=== PATIENT | male | born 1990 | race Caucasian/White ===

== ENCOUNTER 2016-09-06 10:22 | Emergency (ER) | payer OTHER ==
[2016-09-06] MEDS ORDERED: ACETAMINOPHEN 325 MG TABLET (FP) PO ONE (10:39)
[2016-09-06] MEDS ORDERED: FAMOTIDINE 20 MG/50 ML IVPB 50 ML IVPB ONE ×3 (10:39→11:03)
[2016-09-06] MEDS ORDERED: MAG HYDROX/AL HYDROX/SIMETH 30 ML UNIT-DOSE CUP PO ONE (10:39)
[2016-09-06] MEDS ORDERED: SODIUM CHLORIDE 1,000 ML IV STA ×2 (10:39→11:52)
[2016-09-06] MEDS ORDERED: METOCLOPRAMIDE HCL INJECTION 10 MG/2 ML VIAL IVPB ONE (10:39)
[2016-09-06] MEDS ORDERED: MAG HYDROX/AL HYDROX/SIMETH 30 ML UNIT-DOSE CUP ONE (11:02)
[2016-09-06] MEDS ORDERED: ACETAMINOPHEN 325 MG TABLET (FP) ONE (11:02)
[2016-09-06 11:10] LABS: BASOPHIL 1.9 % (0-2.0); EOSINOPHIL 0.3 % (0-4.5); MCH 32.3 pg (25.7-33.7); MCHC 34.2 g/dl (32.0-35.9); MEAN CELL VOLUME 94.2 fl (80-96); MEAN PLT VOLUME 9.2 fl (7.5-11.1); NEUTROPHILS 68.5 % (42.8-82.8); PLATELET COUNT 188 K/MM3 (134-434); RDW 12.1 % (11.9-15.9); WHITE BLOOD COUNT 8.6 K/mm3 (4.0-10.8)
[2016-09-06 11:13] LABS: PH,URINE 7.5 (4.5-8); URINE APPEARANCE Clear; URINE BILIRUBIN 1+ (NEGATIVE); URINE BLOOD Negative (NEGATIVE); URINE GLUCOSE (UA) Negative (NEGATIVE); URINE KETONE 4+ (NEGATIVE); URINE LEUK ESTERASE Negative (NEGATIVE); URINE NITRITE Negative (NEGATIVE); URINE UROBILINOGEN 2.0 E.U/dl (0.2-1.0)
[2016-09-06 11:24] LABS: URINE COLOR YELLOW; URINE PROTEIN 2+ (NEGATIVE)
[2016-09-06 11:24] LABS: ALBUMIN 4.6 g/dl (3.5-5.0); ALK PHOS 61 U/L (32-92); ANION GAP 13 (8-16); BILIRUBIN,TOTAL 2.3 mg/dl (0.2-1.0); CALCIUM 9.2 mg/dl (8.4-10.2); CO2 23 mmol/L (22-28); CREATININE 1.1 mg/dl (0.6-1.3); GLUCOSE,RANDOM 92 mg/dl (74-106); SGOT/AST 20 U/L (10-42); SGPT/ALT 16 U/L (10-40); TOT PROT 7.2 g/dl (6.4-8.3)
--- NOTE | 2016-09-06 11:25 | PDOC ---
History of Present Illness - General Stated Complaint: N/V/D Time Seen by Provider: 09/06/16 10:25 History Source: Patient Exam Limitations: No Limitations - History of Present Illness Initial Comments: 09/06/16 11:46 25 year old male with history of gastritis reports several days (~6 days) of nausea, vomiting, diarrhea and left sided abd pain. Pt reports that he has decreased appetite. Persistent nausea and vomiting (several times a day). Started to notice some blood streaks in his vomitus given his persistent vomiting and wreching. Reported recently started to have diarrhea. Also with constant left sided abdominal pain. Pt was seen at [facility] where he was reportedly given gastritis medications but it was not working. Denies fevers, but reports some chills. Past History - Past Medical History Allergies/Adverse Reactions: Allergies Allergy/AdvReac Type Severity Reaction Status Date / Time No Known Allergies Allergy Verified 09/08/16 13:15 Home Medications: Ambulatory Orders Omeprazole [Prilosec] 40 mg PO DAILY #14 capsule. 11/08/15 Acetaminophen [Tylenol] 650 mg PO Q4H PRN #20 tablet 09/06/16 Famotidine [Pepcid] 20 mg PO BID PRN #20 tablet 09/06/16 Mag Hydrox/Al Hydrox/Simeth [Mylanta Suspension -] 30 ml PO Q6H PRN #1 bottle Ondansetron HCl [Zofran] 4 mg PO Q6H PRN #15 tablet 09/06/16 Anemia: No Asthma: No Cancer: No Cardiac Disorders: No CVA: No COPD: No CHF: No Dementia: No Diabetes: No GI Disorders: Yes (GASTRITIS) Disorders: No HTN: No Hypercholesterolemia: No Kidney Stones: No Liver Disease: No Suicide Attempt (Hx): No Seizures: No Thyroid Disease: No - Surgical History Abdominal Surgery: No Appendectomy: No Cardiac Surgery: No Cholecystectomy: No Lung Surgery: No Neurologic Surgery: No Orthopedic Surgery: Yes (surgery of right shoulder in 2008) - Reproductive History Testicular Surgery: No - Psycho/Social/Smoking Cessation Hx Anxiety: No Suicidal Ideation: No Smoking History: Current some day smoker Have you smoked in the past 12 months: Yes Number of Cigarettes Smoked Daily: 0 Cigars Per Day: 0 'Breaking Loose' booklet given: 06/28/12 Hx Alcohol Use: No Drug/Substance Use Hx: Yes (marijuana) Substance Use Type: Marijuana, Opiates Hx Substance Use Treatment: Yes Review of Systems - Review of Systems Able to Perform ROS?: Yes Comments:: 09/06/16 11:48 GENERAL/CONSTITUTIONAL: No fever, weakness. HEAD, EYES, EARS, NOSE AND THROAT: No change in vision. No ear pain or discharge. No sore throat. CARDIOVASCULAR: No chest pain or shortness of breath. RESPIRATORY: No cough, wheezing, or hemoptysis. GASTROINTESTINAL: + abdominal pain, nausea, vomiting, diarrhea, decreased PO intolerance. GENITOURINARY: No dysuria, frequency, or change in urination. MUSCULOSKELETAL: No joint or muscle swelling or pain. No neck or back pain. SKIN: No rash NEUROLOGIC: No headache, vertigo, loss of consciousness, or change in strength/ sensation. ENDOCRINE: No increased thirst. No abnormal weight change. HEMATOLOGIC/LYMPHATIC: No anemia, easy bleeding, or history of blood clots. ALLERGIC/IMMUNOLOGIC: No hives or skin allergy. *Physical Exam - Vital Signs Last Vital Signs Temp Pulse Resp BP Pulse Ox 140/88 09/06/16 11:05 - Physical Exam Comments: 09/06/16 11:50 GENERAL: Awake, alert, and fully oriented, in no acute distress. HEAD: No signs of trauma EYES: PERRLA, EOMI, sclera anicteric, conjunctiva clear ENT: Auricles normal inspection, hearing grossly normal, nares patent, oropharynx clear without exudates. NECK: Normal ROM, supple, no lymphadenopathy, JVD, or masses LUNGS: Breath sounds equal, clear to auscultation bilaterally. No wheezes, and no crackles HEART: Regular rate and rhythm, normal S1 and S2, no murmurs, rubs or gallops ABDOMEN: +LUQ and LLQ TTP. Soft, nontender, normoactive bowel sounds. No guarding, no rebound. No masses EXTREMITIES: Normal range of motion, no edema. No clubbing or cyanosis. No cords, erythema, or tenderness NEUROLOGICAL: Cranial nerves II through XII grossly intact. Normal speech, normal gait SKIN: Warm, Dry, normal turgor, no rashes or lesions noted. ED Treatment Course - LABORATORY CBC & Chemistry Diagram: 09/06/16 11:00 09/06/16 11:05 - ADDITIONAL ORDERS Additional order review: 09/06/16 11:00 RBC 4.64 MCV 94.2 MCHC 34.2 RDW 12.1 MPV 9.2 Neutrophils % 68.5 Lymphocytes % 22.7 Monocytes % 6.6 Eosinophils % 0.3 Basophils % 1.9 - RADIOLOGY Radiology Studies Ordered: Category Date Time Status ABDOMEN & PELVIS CT WITH CONTR [CT] Stat CT Scan 09/06/16 10:39 Ordered - Medications Given in the ED: ED Medications Discontinued Medications Generic Name Dose Route Start Last Admin Trade Name Mayuri PRN Reason Stop Dose Admin Acetaminophen 650 mg 09/06/16 10:39 09/06/16 11:07 Tylenol - PO 09/06/16 10:40 650 mg ONCE ONE Administration Al Hydroxide/Mg Hydroxide 30 ml 09/06/16 10:39 09/06/16 11:08 Mylanta Oral Suspension - PO 09/06/16 10:40 30 ml ONCE ONE Administration Famotidine/Sodium Chloride 50 mls @ 100 mls/hr 09/06/16 10:39 09/06/16 11:16 Pepcid 20 Mg Premixed Ivpb - IVPB 09/06/16 11:08 100 mls/hr ONCE ONE Administration Metoclopramide HCl 10 mg 09/06/16 10:39 09/06/16 11:09 Reglan Injection - IVPB 09/06/16 10:40 10 mg ONCE ONE Administration Medical Decision Making - Medical Decision Making 09/06/16 11:51 Vital Signs Temp Pulse Resp BP Pulse Ox 99.3 F 100 H 16 140/88 09/06/16 10:24 09/06/16 10:24 09/06/16 10:24 09/06/16 11:05 Patient appears dehydrated and with n/v/d and likely now with clary reza tear , pt will need labs, and IVF and symptom control. However, with left sided abd pain and diarrhea, will need CT abd/pelvis to r/o colitis or other acute abdominal pathology. Differential also includes gastroenteritis. Reassess CT reviewed. Pt given information regarding diverticulosis. Pt to avoid foods like small seeds. Pt symptoms improved. Will follow up with GI. Return precautions given. *DC/Admit/Observation/Transfer Diagnosis at time of Disposition: Nausea and vomiting - Discharge Dispostion Disposition: HOME Condition at time of disposition: Improved Admit: No - Prescriptions Prescriptions: Mag Hydrox/Al Hydrox/Simeth [Mylanta Suspension -] 30 ml PO Q6H PRN #1 bottle PRN Reason: Abdominal Pain Famotidine [Pepcid] 20 mg PO BID PRN #20 tablet PRN Reason: Abdominal Pain Acetaminophen [Tylenol] 650 mg PO Q4H PRN #20 tablet PRN Reason: Pain Ondansetron HCl [Zofran] 4 mg PO Q6H PRN #15 tablet PRN Reason: Nausea - Referrals Referrals: Marin Rader MD [Staff Physician] - Radha Story MD [Staff Physician] - Marvin Saunders MD [Staff Physician] - Denis Navarro MD [Staff Physician] - - Patient Instructions Printed Discharge Instructions: Nausea and Vomiting-Adult, Diarrhea, DI for Diverticulosis Additional Instructions: Please take the medications as prescribed. Your blood work and CT scan showed no acute findings. There was an incidental finding of diverticulosis. Please avoid foods with small seeds as the seeds can create an inflammation of the diverticulosis. Drink plenty of fluids and rest. Follow up with a GI physician. Call to schedule an appointment. - Post Discharge Activity Work/School Note: Back to Work
[2016-09-06 11:27] LABS: URINE RBC 0-2 /hpf (0-3)
[2016-09-06 11:28] LABS: URINE SPERM FEW
[2016-09-06 11:36] VITALS: TEMP 99.3; BMI 21.2
[2016-09-06] MEDS ORDERED: ONDANSETRON 4 MG/2 ML VIAL IVPB ONE (13:51)
[2016-09-06] MEDS ORDERED: ONDANSETRON 4 MG/2 ML VIAL ONE (14:28)
[2016-09-06 16:39] VITALS: BP 132/89; PULSE 64
== END 2016-09-06 16:39 | disposition home or self-care (01) ==
LOC: FER 10:22
PROC: 3E033GC Introduction of Other Therapeutic Substance into Peripheral Vein, Percutaneous Approach (ICD-10-PCS; principal; 2016-09-06)
PROC: 3E0337Z Introduction of Electrolytic and Water Balance Substance into Peripheral Vein, Percutaneous Approach (ICD-10-PCS; 2016-09-06)
DX: R11.2 Nausea with vomiting, unspecified (principal)
CPT/HCPCS: 36415; 74177-TC; 80053; 81003; 81015; 83690; 83735; 85025; 96361; 96365; 96375; 99282-25

== ENCOUNTER 2016-09-08 13:10 | Emergency (ER) | payer OTHER ==
[2016-09-08] MEDS ORDERED: SODIUM CHLORIDE 1,000 ML IV STA ×2 (13:20→14:59)
[2016-09-08] MEDS ORDERED: FAMOTIDINE 20 MG/50 ML IVPB 50 ML IVPB ONE ×2 (13:20→13:22)
[2016-09-08] MEDS ORDERED: ONDANSETRON 4 MG/2 ML VIAL IVPUSH ONE (13:20)
[2016-09-08 13:21] VITALS: BMI 23.1
[2016-09-08] MEDS ORDERED: ONDANSETRON 4 MG/2 ML VIAL ONE (13:22)
--- NOTE | 2016-09-08 13:24 | PDOC ---
History of Present Illness - General Chief Complaint: Nausea/Vomiting Stated Complaint: NAUSEA, VOMITING, ABD PAIN Time Seen by Provider: 09/08/16 13:16 History Source: Patient Exam Limitations: No Limitations - History of Present Illness Travel History: No Initial Comments: 09/08/16 13:22 25 y/o male seen 2 days ago in ER for abdominal pain presents to ER today with increase N/V and abdominal pain. Denies back pain, dysuria, fever or chills. No SOB or chest pain. Patient has hx of gastritis, denies blood in stool or vomit. Has not followed up with [employer]ing [employer]. Timing/Duration: reports: constant, getting worse Quality: reports: moderate Abdominal Pain Onset Location: reports: epigastric Pain Radiation: reports: no radiation Activities at Onset: reports: none Past History - Past Medical History Allergies/Adverse Reactions: Allergies Allergy/AdvReac Type Severity Reaction Status Date / Time No Known Allergies Allergy Verified 09/08/16 13:15 Home Medications: Ambulatory Orders Omeprazole [Prilosec] 40 mg PO DAILY #14 capsule. 11/08/15 Acetaminophen [Tylenol] 650 mg PO Q4H PRN #20 tablet 09/06/16 Famotidine [Pepcid] 20 mg PO BID PRN #20 tablet 09/06/16 Mag Hydrox/Al Hydrox/Simeth [Mylanta Suspension -] 30 ml PO Q6H PRN #1 bottle Ondansetron HCl [Zofran] 4 mg PO Q6H PRN #15 tablet 09/06/16 Anemia: No Asthma: No Cancer: No Cardiac Disorders: No CVA: No COPD: No CHF: No Dementia: No Diabetes: No GI Disorders: Yes (GASTRITIS) Disorders: No HTN: No Hypercholesterolemia: No Kidney Stones: No Liver Disease: No Suicide Attempt (Hx): No Seizures: No Thyroid Disease: No - Surgical History Abdominal Surgery: No Appendectomy: No Cardiac Surgery: No Cholecystectomy: No Lung Surgery: No Neurologic Surgery: No Orthopedic Surgery: Yes (surgery of right shoulder in 2008) - Reproductive History Testicular Surgery: No - Psycho/Social/Smoking Cessation Hx Anxiety: No Suicidal Ideation: No Smoking History: Current some day smoker Have you smoked in the past 12 months: Yes Number of Cigarettes Smoked Daily: 0 If you are a former smoker, when did you quit?: pt smokes marijuana not tobacco Cigars Per Day: 0 'Breaking Loose' booklet given: 06/28/12 Hx Alcohol Use: No Drug/Substance Use Hx: Yes (marijuana) Substance Use Type: Marijuana, Opiates Hx Substance Use Treatment: Yes Abd/GI Specific PMHX - Complaint Specific PMHX Hepatitis: No Pancreatitis: No Review of Systems - Review of Systems Able to Perform ROS?: Yes Is the patient limited [place]ian proficient: No Constitutional: No: Chills, Fever HEENTM: No: Throat Pain Respiratory: No: Cough, Shortness of Breath Cardiac (ROS): No: Chest Pain, Irregular Heart Rate ABD/GI: Yes: Nausea, Vomiting. No: Diarrhea : No: Burning, Dysuria Musculoskeletal: No: Back Pain All Other Systems: Reviewed and Negative *Physical Exam - Physical Exam General Appearance: Yes: Nourished, Mild Distress HEENT: positive: EOMI, MARTY, Normal ENT Inspection Neck: positive: Trachea midline, Normal Thyroid, Supple. negative: Tender, Rigid Respiratory/Chest: positive: Lungs Clear, Normal Breath Sounds. negative: Chest Tender Cardiovascular: positive: Regular Rhythm, Regular Rate, S1, S2 Gastrointestinal/Abdominal: positive: Normal Bowel Sounds, Tender (diffuse tenderness, however worse mid epigatric), Flat, Soft. negative: Organomegaly, Pulsatile Mass Lymphatic: negative: Adenopathy, Tenderness, Other Musculoskeletal: positive: Normal Inspection. negative: CVA Tenderness Extremity: positive: Normal Capillary Refill, Normal Inspection Integumentary: positive: Normal Color, Dry, Warm Neurologic: positive: manager of financial II-XII NML intact, Fully Oriented, Alert, Normal Mood/ Affect, Normal Response, Motor Strength / ED Treatment Course - LABORATORY CBC & Chemistry Diagram: 09/08/16 13:30 09/08/16 13:30 - ADDITIONAL ORDERS Additional order review: 09/08/16 16:13 CT abd/pelvis no acute process seen Progress Note - Progress Note Progress Note: Pt with worsening abdominal pain with N/V Will repeat CT abdomen/pelvis Labs, fluids, and Pepcid and Zofran Pt is doing better, will need to follow up with GI If worsen return to ER *DC/Admit/Observation/Transfer Diagnosis at time of Disposition: Peptic ulcer disease - Discharge Dispostion Disposition: HOME Condition at time of disposition: Stable Admit: No - Patient Instructions Printed Discharge Instructions: DI for Peptic Ulcer Additional Instructions: Fluids, rest, Tylenol Follow up with GI If worsen return to ER
[2016-09-08 13:43] LABS: PH,URINE >= 9.0 (4.5-8); URINE APPEARANCE Clear; URINE BILIRUBIN Negative (NEGATIVE); URINE BLOOD Negative (NEGATIVE); URINE GLUCOSE (UA) Negative (NEGATIVE); URINE KETONE Negative (NEGATIVE); URINE LEUK ESTERASE Negative (NEGATIVE); URINE NITRITE Negative (NEGATIVE); URINE UROBILINOGEN 0.2 E.U/dl (0.2-1.0)
[2016-09-08 13:50] LABS: BASOPHIL 0.8 % (0-2.0); EOSINOPHIL 0.5 % (0-4.5); MCH 32.5 pg (25.7-33.7); MCHC 33.8 g/dl (32.0-35.9); MEAN CELL VOLUME 96.1 fl (80-96); MEAN PLT VOLUME 9.1 fl (7.5-11.1); PLATELET COUNT 228 K/MM3 (134-434); RDW 12.6 % (11.9-15.9); WHITE BLOOD COUNT 10.4 K/mm3 (4.0-10.8)
[2016-09-08 14:01] LABS: URINE COLOR YELLOW; URINE PROTEIN 1+ (NEGATIVE)
[2016-09-08 14:11] LABS: ALBUMIN 5.2 g/dl (3.5-5.0); ALK PHOS 66 U/L (32-92); ANION GAP 12 (8-16); BILIRUBIN,TOTAL 1.5 mg/dl (0.2-1.0); CALCIUM 9.8 mg/dl (8.4-10.2); CO2 25 mmol/L (22-28); CREATININE 0.9 mg/dl (0.6-1.3); GLUCOSE,RANDOM 97 mg/dl (74-106); SGOT/AST 18 U/L (10-42); SGPT/ALT 17 U/L (10-40); TOT PROT 8.2 g/dl (6.4-8.3)
[2016-09-08 16:41] VITALS: BP 139/94; PULSE 64; TEMP 99.7
[2016-09-08 20:45] LABS: URINE RBC 0-2 /hpf (0-3); URINE WBC 0-1 (3-5)
== END 2016-09-08 16:44 | disposition home or self-care (01) ==
LOC: FER 13:10
PROC: 3E033GC Introduction of Other Therapeutic Substance into Peripheral Vein, Percutaneous Approach (ICD-10-PCS; principal; 2016-09-08)
PROC: 3E0337Z Introduction of Electrolytic and Water Balance Substance into Peripheral Vein, Percutaneous Approach (ICD-10-PCS; 2016-09-08)
DX: K27.9 Peptic ulcer, site unspecified, unspecified as acute or chronic, without hemorrhage or perforation (principal); F17.210 Nicotine dependence, cigarettes, uncomplicated
CPT/HCPCS: 36415; 74177-TC; 80053; 81003; 81015; 83690; 85025; 99283-25

== ENCOUNTER 2017-01-03 20:27 | Emergency (ER) | payer OTHER ==
[2017-01-03 20:34] VITALS: BP 134/86; PULSE 72; TEMP 98.9; BMI 24.3
[2017-01-03] MEDS: SODIUM CHLORIDE 1,000 ML IV STA ×2 (21:00→21:05)
[2017-01-03] MEDS ORDERED: ONDANSETRON 4 MG/2 ML VIAL IVPUSH ONE (21:05)
--- NOTE | 2017-01-03 21:05 | PDOC ---
History of Present Illness - General Chief Complaint: Vomiting/Diarrhea Stated Complaint: VOMITING Time Seen by Provider: 01/03/17 21:00 History Source: Patient Exam Limitations: No Limitations - History of Present Illness Travel History: No Initial Comments: 01/03/17 21:37 26-year-old male with no medical history presents to the emergency department requesting for a work note. Patient states he had one episode of nausea/ vomiting at approximately 1300 hrs. this afternoon/nonbilious, nonbloody but states felt fine after he fell asleep. Patient went to work this afternoon and was told he needs a doctor's note to return back to work. Patient denies any n/v /f/c, transfer note headache, dizziness, lightheadedness, neck pain, back pain, chest pain, shortness of breath, abdominal pains, urinary symptoms. Patient states he is asymptomatic and he feels "great". Timing/Duration: reports: gone now Past History - Past Medical History Allergies/Adverse Reactions: Allergies Allergy/AdvReac Type Severity Reaction Status Date / Time No Known Allergies Allergy Verified 09/08/16 13:15 Home Medications: Ambulatory Orders Omeprazole [Prilosec] 40 mg PO DAILY #14 capsule. 11/08/15 Acetaminophen [Tylenol] 650 mg PO Q4H PRN #20 tablet 09/06/16 Famotidine [Pepcid] 20 mg PO BID PRN #20 tablet 09/06/16 Mag Hydrox/Al Hydrox/Simeth [Mylanta Suspension -] 30 ml PO Q6H PRN #1 bottle Ondansetron HCl [Zofran] 4 mg PO Q6H PRN #15 tablet 09/06/16 Anemia: No Asthma: No Cancer: No Cardiac Disorders: No CVA: No COPD: No CHF: No Dementia: No Diabetes: No GI Disorders: Yes (GASTRITIS) Disorders: No HTN: No Hypercholesterolemia: No Kidney Stones: No Liver Disease: No Seizures: No Thyroid Disease: No - Surgical History Abdominal Surgery: No Appendectomy: No Cardiac Surgery: No Cholecystectomy: No Lung Surgery: No Neurologic Surgery: No Orthopedic Surgery: Yes (surgery of right shoulder in 2008) - Reproductive History Testicular Surgery: No - Suicide/Smoking/Psychosocial Hx Smoking History: Never smoked Have you smoked in the past 12 months: Yes Number of Cigarettes Smoked Daily: 0 If you are a former smoker, when did you quit?: pt smokes marijuana not tobacco Cigars Per Day: 0 Information on smoking cessation initiated: No 'Breaking Loose' booklet given: 06/28/12 Hx Alcohol Use: No Drug/Substance Use Hx: No Substance Use Type: Marijuana, Opiates Hx Substance Use Treatment: Yes Abd/GI Specific PMHX - Complaint Specific PMHX Hepatitis: No Pancreatitis: No Review of Systems - Review of Systems Able to Perform ROS?: Yes Comments:: 01/03/17 21:40 CONSTITUTIONAL: Absent: fever, chills, diaphoresis, generalized weakness, malaise, loss of appetite HEENT: Absent: rhinorrhea, nasal congestion, throat pain, throat swelling, difficulty swallowing, mouth swelling, ear pain, eye pain, visual Changes CARDIOVASCULAR: Absent: chest pain, loss of consciousness, palpitations, irregular heart rate, peripheral edema RESPIRATORY: Absent: cough, shortness of breath, dyspnea with exertion, orthopnea, wheezing, stridor, hemoptysis GASTROINTESTINAL: Absent: abdominal pain, abdominal distension, nausea, vomiting, diarrhea, constipation, melena, hematochezia GENITOURINARY: Absent: dysuria, frequency, urgency, hesitancy, hematuria, flank pain, genital pain MUSCULOSKELETAL: Absent: myalgia, arthralgia, joint swelling SKIN: Absent: rash, itching, pallor Is the patient limited Upper Sorbian proficient: No *Physical Exam - Vital Signs Last Vital Signs Temp Pulse Resp BP Pulse Ox 98.9 F 72 18 134/86 99 01/03/17 20:29 01/03/17 20:29 01/03/17 20:29 01/03/17 20:29 01/03/17 20:29 - Physical Exam Comments: 01/03/17 21:40 GENERAL: Well developed, well nourished. Awake and alert. No acute distress. HEENT: Normocephalic, atraumatic. PERRLA, EOMI. No conjunctival pallor. Sclera are non- icteric. Moist mucous membranes. Oropharynx is clear. NECK: Supple. Full ROM. No JVD. Carotid pulses 2+ and symmetric, without bruits. No thyromegaly. No lymphadenopathy. CARDIOVASCULAR: Regular rate and rhythm. No murmurs, rubs, or gallops. Distal pulses are 2+ and symmetric. PULMONARY: No evidence of respiratory distress. Lungs clear to auscultation bilaterally. No wheezing, rales or rhonchi. ABDOMINAL: Soft. Non-tender. Non-distended. No rebound or guarding. No organomegaly. Normoactive bowel sounds. *DC/Admit/Observation/Transfer Diagnosis at time of Disposition: Nausea and vomiting - Discharge Dispostion Disposition: HOME Condition at time of disposition: Stable Admit: No - Referrals Referrals: Heena Berger MD [Staff Physician] - - Patient Instructions Additional Instructions: Return back to the emergency department for any medical complaints. - Post Discharge Activity Forms/Work/School Notes: Back to Work
== END 2017-01-03 22:09 | disposition home or self-care (01) ==
LOC: JER 20:27
DX: R11.2 Nausea with vomiting, unspecified (principal)
CPT/HCPCS: 99281-25

== ENCOUNTER 2018-06-21 14:41 | Emergency (ER) | payer OTHER ==
--- NOTE | 2018-06-21 14:43 | PDOC ---
History of Present Illness - General History Source: Patient Exam Limitations: No Limitations - History of Present Illness Initial Comments: 06/21/18 15:32 The patient is a 27 year old male, with a significant past medical history of opioid abuse, who presents to the emergency department with a few days of nausea , vomiting, diarrhea, intermittent chills and sweats, intermittent abdominal cramping, excessive yawning, and feeling anxious. He states he takes about 5-6 10mg percocets a day. He states he took a half of his friend's suboxone which made him feel better on Monday, however, continued to have symptoms since Monday. He states he would be interested in formal detox, but is concerned about missing work because he has been out of work all week. The patient denies chest pain, shortness of breath, headache and dizziness. The patient denies fever, diarrhea and constipation, or hematochezia. He denies hematemesis. The patient denies dysuria, frequency, urgency and hematuria. Allergies: NKDA Social history: opioid abuse <Kailee Blankenship - Last Filed: 06/21/18 15:40> <Billy Gould - Last Filed: 06/21/18 15:58> - General Chief Complaint: Nausea/Vomiting Stated Complaint: N/V/ABD PAIN Past History <Kailee Blankenship - Last Filed: 06/21/18 15:40> - Past Medical History Anemia: No Asthma: No Cancer: No Cardiac Disorders: No CVA: No COPD: No CHF: No DVT: No Dementia: No Diabetes: No GI Disorders: Yes (GASTRITIS) Disorders: No HTN: No Hypercholesterolemia: No Kidney Stones: No Liver Disease: No Seizures: No Thyroid Disease: No - Surgical History Abdominal Surgery: No Appendectomy: No Cardiac Surgery: No Cholecystectomy: No Lung Surgery: No Neurologic Surgery: No Orthopedic Surgery: Yes (surgery of right shoulder in 2008) - Reproductive History Testicular Surgery: No - Suicide/Smoking/Psychosocial Hx Smoking History: Never smoked Have you smoked in the past 12 months: Yes Number of Cigarettes Smoked Daily: 0 If you are a former smoker, when did you quit?: pt smokes marijuana not tobacco Cigars Per Day: 0 'Breaking Loose' booklet given: 06/28/12 Hx Alcohol Use: No Drug/Substance Use Hx: No Substance Use Type: Marijuana, Opiates Hx Substance Use Treatment: Yes <Billy Gould - Last Filed: 06/21/18 15:58> - Past Medical History Allergies/Adverse Reactions: Allergies Allergy/AdvReac Type Severity Reaction Status Date / Time No Known Allergies Allergy Verified 06/21/18 14:42 Home Medications: Ambulatory Orders Ondansetron [Zofran Odt -] 4 mg SL TID #21 od.tablet 06/21/18 Review of Systems - Review of Systems Able to Perform ROS?: Yes Comments:: 06/21/18 15:35 ROS: A complete review of 10 out of 10 review of systems is taken and is negative apart from what is previously mentioned below and in the HPI. Constitutional: (+) fever, chills, anxious, yawning excessively ENT: No sore throat Cardiovascular: No palpitations; no chest pain Pulmonary: No cough; no trouble breathing Gastrointestinal:(+) nausea, vomiting, abdominal cramping, diarrhea Genitourinary: No urinary problems; no hematuria Skin: No rash Lymph system: No swollen glands Musculoskeletal: (+) diffuse body aches. No joint swelling Neurological: No weakness; oo numbness; No Headache; no vertigo; no lightheadedness Psychiatric: no depression <Kailee Blankenship - Last Filed: 06/21/18 15:40> *Physical Exam - Vital Signs Last Vital Signs Temp Pulse Resp BP Pulse Ox 99.6 F 60 16 126/83 99 06/21/18 14:42 06/21/18 14:42 06/21/18 14:42 06/21/18 14:42 06/21/18 14:42 - Physical Exam Comments: 06/21/18 15:38 Vitals: Triage vital signs reviewed General Appearance: No acute distress, well nourished, well developed Head: Atraumatic Eyes: Pupils equal reactive round, extraocular movement intact Throat: Posterior oropharynx without erythema, mucous membranes moist Neck: Supple; No nuchal rigidity Chest Wall: Nontender Cardiac: Regular rate and rhythm, no murmurs, no rubs, no gallops Lungs: Clear to auscultation bilateral, good air movement bilaterally Abdomen: Soft, nondistended, normal bowel sounds, nontender to palpation Extremities: Full range of motion to all extremities, no cyanosis, clubbing, or edema Skin: Warm and dry, no rashes or lesions, no rash, no petechiae Neuro: AOX3; Cranial Nerves 2-12 grossly intact, Strength intact to all extremities, Sensation intact to all extremities, gait normal. non-tremulous. Psych: Normal mood, normal affect <Kailee Blankenship - Last Filed: 06/21/18 15:40> ED Treatment Course - LABORATORY CBC & Chemistry Diagram: 06/21/18 14:49 06/21/18 14:49 - ADDITIONAL ORDERS Additional order review: Laboratory Results 06/21/18 14:49 Sodium 137 Potassium 4.0 Chloride 102 Carbon Dioxide 27 Anion Gap 8 BUN 11 Creatinine 0.8 Creat Clearance w eGFR 115.11 Random Glucose 101 Calcium 9.8 Total Bilirubin 1.1 H AST 21 ALT 21 Alkaline Phosphatase 70 Total Protein 7.4 Albumin 4.6 06/21/18 14:49 RBC 4.58 MCV 96.6 H MCHC 34.0 RDW 12.4 MPV 9.4 Neutrophils % 77.6 Lymphocytes % 17.4 Monocytes % 4.3 Eosinophils % 0.2 Basophils % 0.5 - Medications Given in the ED: ED Medications Discontinued Medications Generic Name Dose Route Start Last Admin Trade Name Freq PRN Reason Stop Dose Admin Famotidine/Sodium Chloride 20 mg in 50 mls @ 100 mls/hr 06/21/18 14:44 14:56 Pepcid 20 Mg Premixed Ivpb - IVPB 06/21/18 15:13 100 mls/hr ONCE ONE Administration Ondansetron HCl 4 mg 06/21/18 14:44 06/21/18 14:56 Zofran Injection IVPUSH 06/21/18 14:45 4 mg ONCE ONE Administration Sodium Chloride 1,000 ml 06/21/18 14:44 06/21/18 14:55 Normal Saline - IV 06/21/18 14:45 1,000 ml ONCE ONE Administration <Kailee Blankenship - Last Filed: 06/21/18 15:40> - LABORATORY CBC & Chemistry Diagram: 06/21/18 14:49 06/21/18 14:49 <Billy Gould - Last Filed: 06/21/18 15:58> Medical Decision Making - Medical Decision Making 06/21/18 15:40 COWS ~14 <Kailee Blankenship - Last Filed: 06/21/18 15:40> - Medical Decision Making 19 years old past medical history significant for opiate abuse has been using up until this past Monday when he stops since then has been experiencing opiate withdrawal symptoms including nausea vomiting diarrhea flushing sweating anxiety restlessness COWs score 14 No inpatient beds at to [facility] however were able to arrange outpatient follow -up for 11 AM tomorrow In conjunction with team at [facility] we'll treat here in the emergency department with 4 mg Suboxone patient will follow up tomorrow morning at 11 AM We'll treat with Zofran when necessary overnight to help with nausea Findings, need for follow-up and strict return instructions discussed with patient. <Billy Gould - Last Filed: 06/21/18 15:58> *DC/Admit/Observation/Transfer - Attestations Scribe Attestion: 06/21/18 15:38 Documentation prepared by Kailee Blankenship, acting as hospital medical biller for Billy Gould MD <Kailee Blankenship - Last Filed: 06/21/18 15:40> - Discharge Dispostion Decision to Admit order: No <Billy Gould - Last Filed: 06/21/18 15:58> Diagnosis at time of Disposition: Opioid withdrawal - Discharge Dispostion Disposition: HOME Condition at time of disposition: Stable - Referrals Referrals: [facility] [place] [Provider Group] - Patient Instructions Printed Discharge Instructions: DI for Vomiting -- Adult Additional Instructions: Take Zofran as prescribed. Drink plenty of fluids. Return to ED for any severe worsening symptoms or for any concerns. Tomorrow morning at 11 AM follow-up at [address] [place] [address]. [facility]. At [facility] tell them you have an appointment at [facility] at 11am. Arrive 15min early - Post Discharge Activity Forms/Work/School Notes: Back to Work
[2018-06-21 14:44] VITALS: BMI 23.7
[2018-06-21] MEDS ORDERED: ONDANSETRON 4 MG/2 ML VIAL IVPUSH ONE (14:44)
[2018-06-21] MEDS ORDERED: SODIUM CHLORIDE 0.9% 1000 ML INFUS.BAG IV ONE (14:44)
[2018-06-21] MEDS ORDERED: FAMOTIDINE 20 MG/50 ML IVPB 20 MG/50 ML MG IVPB ONE ×2 (14:44→14:50)
[2018-06-21] MEDS ORDERED: ONDANSETRON 4 MG/2 ML VIAL ONE (14:50)
[2018-06-21 14:57] VITALS: BP 126/83; PULSE 60; TEMP 99.6
[2018-06-21 15:11] LABS: BASO % 0.5 % (0-2.0); EOS % 0.2 % (0-4.5); HEMATOCRIT 44.2 % (35.4-49); LYMPH % 17.4 % (8-40); MCH 32.8 pg (25.7-33.7); MEAN CELL VOLUME 96.6 fl (80-96); MEAN PLT VOLUME 9.4 fl (7.5-11.1); MONO % 4.3 % (3.8-10.2); NEUT % 77.6 % (42.8-82.8); PLATELET COUNT 237 K/MM3 (134-434); RBC 4.58 M/mm3 (4.00-5.60); RDW 12.4 % (11.9-15.9); WHITE BLOOD COUNT 8.5 K/mm3 (4.0-10.8)
[2018-06-21 15:19] LABS: ALBUMIN 4.6 g/dl (3.4-5.0); ALK PHOS 70 U/L (45-117); ANION GAP 8 MMOL/L (8-16); BILIRUBIN,TOTAL 1.1 mg/dl (0.2-1); BLOOD UREA NITROGEN 11 mg/dl (7-18); CALCIUM 9.8 mg/dl (8.5-10); CHLORIDE 102 mmol/L (98-107); CO2 27 mmol/L (21-32); CREATININE 0.8 mg/dl (0.55-1.3); GLUCOSE,RANDOM 101 mg/dl (74-106); SGOT/AST 21 U/L (15-37); SGPT/ALT 21 U/L (13-61); SODIUM 137 mmol/L (136-145); TOT PROT 7.4 g/dl (6.4-8.2)
[2018-06-21] MEDS ORDERED: BUPRENORPHINE/NALOXONE 2 MG/0.5 MG FILM PACKET SL ONE (15:50)
[2018-06-21] MEDS ORDERED: BUPRENORPHINE/NALOXONE 8 MG/2 MG FILM PACKET SL ONE (16:15)
[2018-06-21 17:54] LABS: COCAINE, UR NEGATIVE ng/ml (CUTOFF=300); METHADONE, UR NEGATIVE ng/ml (CUTOFF=300); OPIATES, URI NEGATIVE ng/ml (CUTOFF=300); PHENCYCLIDINE,URINE NEGATIVE ng/ml (CUTOFF=25); URINE AMPHETAMINES NEGATIVE ng/ml (CUTOFF=500); URINE BARBITURATES NEGATIVE ng/ml (CUTOFF=200); URINE BENZODIAZEPINES NEGATIVE ng/ml (CUTOFF=200)
== END 2018-06-21 16:24 | disposition home or self-care (01) ==
LOC: FER 14:41
PROC: 3E033GC Introduction of Other Therapeutic Substance into Peripheral Vein, Percutaneous Approach (ICD-10-PCS; principal; 2018-06-21)
PROC: 3E0337Z Introduction of Electrolytic and Water Balance Substance into Peripheral Vein, Percutaneous Approach (ICD-10-PCS; 2018-06-21)
DX: F11.23 Opioid dependence with withdrawal (principal)
CPT/HCPCS: 36415; 80053; 80307; 81003; 85025; 99282-25; J7030

== ENCOUNTER 2018-07-27 19:09 | Emergency (ER) | payer SELFPAY ==
[2018-07-27 19:17] VITALS: BP 124/76; PULSE 75; TEMP 99.3; BMI 23.1
[2018-07-27] MEDS ORDERED: SODIUM CHLORIDE 1,000 ML IV STA ×2 (20:48→23:34)
[2018-07-27] MEDS ORDERED: ONDANSETRON 4 MG/2 ML VIAL IVPUSH ONE (20:48)
[2018-07-27] MEDS ORDERED: ONDANSETRON 4 MG/2 ML VIAL ONE (20:53)
[2018-07-27 21:02] LABS: BASO % 0.2 % (0-2.0); EOS % 0.1 % (0-4.5); HEMOGLOBIN 14.9 GM/dl (11.7-16.9); LYMPH % 12.6 % (8-40); MCH 32.7 pg (25.7-33.7); MCHC 34.7 g/dl (32.0-35.9); MEAN CELL VOLUME 94.1 fl (80-96); MEAN PLT VOLUME 8.7 fl (7.5-11.1); MONO % 1.7 % (3.8-10.2); NEUT % 85.4 % (42.8-82.8); PLATELET COUNT 215 K/MM3 (134-434); RBC 4.57 M/mm3 (4.00-5.60); RDW 11.7 % (11.9-15.9)
[2018-07-27 21:21] LABS: ALBUMIN 4.6 g/dl (3.4-5.0); BILIRUBIN,TOTAL 0.8 mg/dl (0.2-1); CALCIUM 9.5 mg/dl (8.5-10); POTASSIUM 3.7 mmol/L (3.5-5.1); TOT PROT 7.4 g/dl (6.4-8.2)
[2018-07-27] MEDS ORDERED: FAMOTIDINE 20 MG/50 ML IVPB 20 MG/50 ML MG IVPB ONE ×2 (21:32→21:34)
[2018-07-27] MEDS ORDERED: METOCLOPRAMIDE HCL INJECTION 10 MG/2 ML VIAL IVPB ONE (23:34)
[2018-07-27] MEDS ORDERED: METOCLOPRAMIDE HCL INJECTION 10 MG/2 ML VIAL ONE (23:36)
--- NOTE | 2018-07-28 03:09 | PDOC ---
Documentation entered by Aranza Celis SCRIBE, acting as scribe for Leonela Garcia MD. Leonela Garcia MD: This documentation has been prepared by the antoninoibeVimal Lincy, SCRIBE, under my direction and personally reviewed by me in its entirety. I confirm that the documentation accurately reflects all work, treatment, procedures, and medical decision making performed by me. History of Present Illness - General Chief Complaint: Nausea/Vomiting Stated Complaint: N/V/ABD PAIN Time Seen by Provider: 07/27/18 19:23 History Source: Patient Exam Limitations: No Limitations - History of Present Illness Initial Comments: 07/27/18 20:51 The patient is a 27-year-old male with a past medical history significant for gastritis, and daily marijuana use presents to the emergency department with abdominal pain and vomiting. The patient reports since 7:00 am today hes been having multiple episodes of nonbloody yellowish emesis followed by the onset of diffuse abdominal pain. The patient denies any factors that improve the symptoms. Denies fever, chills, diarrhea. Denies recent travel, sick contact or ingestions of raw food. Allergies: NKDA Social history: denies the use of tobacco and alcohol. +marijuana use daily Past History - Past Medical History Allergies/Adverse Reactions: Allergies Allergy/AdvReac Type Severity Reaction Status Date / Time No Known Allergies Allergy Verified 06/21/18 14:42 Home Medications: Ambulatory Orders NK [No Known Home Medication] 07/27/18 Anemia: No Asthma: No Cancer: No Cardiac Disorders: No CVA: No COPD: No CHF: No DVT: No Dementia: No Diabetes: No GI Disorders: Yes (GASTRITIS) Disorders: Yes (? polyuria) HTN: No Hypercholesterolemia: No Kidney Stones: No Liver Disease: No Seizures: No Thyroid Disease: No - Surgical History Abdominal Surgery: No Appendectomy: No Cardiac Surgery: No Cholecystectomy: No Lung Surgery: No Neurologic Surgery: No Orthopedic Surgery: Yes (surgery of right shoulder in 2008) - Reproductive History Testicular Surgery: No - Suicide/Smoking/Psychosocial Hx Smoking History: Current every day smoker Have you smoked in the past 12 months: Yes Number of Cigarettes Smoked Daily: 0 If you are a former smoker, when did you quit?: pt smokes marijuana not tobacco Cigars Per Day: 0 Information on smoking cessation initiated: Yes 'Breaking Loose' booklet given: 06/21/18 Hx Alcohol Use: No Drug/Substance Use Hx: Yes (MARIJUANA) Substance Use Type: Marijuana, Opiates Hx 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) Abd/GI Specific PMHX - Complaint Specific PMHX Hepatitis: No Pancreatitis: No Review of Systems - Review of Systems Able to Perform ROS?: Yes Comments:: 07/27/18 20:51 Constitutional - Pt denies Fever, Chills, weakness, HEENT: denies vision changes, sore throat Respiratory: Denies cough, sob, hemoptysis Cardiac: denies chest pain, palpitations, lightheadedness, leg swelling Abd/GI: +abdominal pain, nausea, vomiting. Denies blood per rectum, melena, diarrhea : denies dysuria, frequency, discharge Musculoskeletal - denies back pain, joint swelling skin - denies bruising, erythema, rash neurological: denies headache, numbness, focal weakness, tingling, ataxia, weakness hematologic: denies anemia, easy bruising, easy bleeding *Physical Exam - Vital Signs Last Vital Signs Temp Pulse Resp BP Pulse Ox 99.3 F 75 16 124/76 100 07/27/18 19:13 07/27/18 19:13 07/27/18 19:13 07/27/18 19:13 07/27/18 19:13 - Physical Exam Comments: 07/27/18 20:52 GENERAL: The patient is awake, alert, and fully oriented, in no acute distress. HEAD: Normal with no signs of trauma. EYES: Pupils equal, round and reactive to light, extraocular movements intact, sclera anicteric, conjunctiva clear with no pallor. ENT: +dry mucous membranes. Ears normal, nares patent, oropharynx clear without exudates. NECK: Normal range of motion, supple without lymphadenopathy, JVD, or masses. LUNGS: Breath sounds equal, clear to auscultation bilaterally. No wheeze/ crackles. HEART: Regular rate and rhythm, normal S1 and S2 without murmur or rub. ABDOMEN: +soft, mild generalized abdominal tenderness, nondistended. No guarding or rebound. No palpable masses. EXTREMITIES: Normal range of motion, no edema. No clubbing or cyanosis. No cords, erythema, or tenderness. NEUROLOGICAL: Cranial nerves II through XII grossly intact. Normal speech, normal gait. PSYCH: Normal mood, normal affect. SKIN: Warm, Dry, normal turgor, no rashes or lesions noted. ED Treatment Course - LABORATORY CBC & Chemistry Diagram: 07/27/18 20:42 07/27/18 20:42 Progress Note - Progress Note Progress Note: As noted above, this 27-year-old man with a history of cannabis dependence, gastritis and recurrent nausea/vomiting for which he has been evaluated in the ER multiple times presents with 1 day history of of epigastric pain/nausea and vomiting of bilious material. Medical record indicated that the patient had been treated in [facility] outpatient program for opioid dependence starting ; he was last seen on 07/25/18. When asked about his participation in the program, the patient states that he is no longer attending it. Exam is noted above. The patient received a liter normal saline, 4 mg of Zofran IV, 20mg Pepcid IV . He had some relief of nausea and discomfort but but there was some residual nausea he received an additional liter of normal saline and 10 mg of Reglan IV. CBC and chemistry profile was essentially normal. After second liter of normal saline and Reglan IV, the patient is markedly improved and wishes to be discharged. Patient states that he has Zofran ODT at home and will take as needed for recurrent nausea. He strongly encouraged to maintain a clear liquid diet tomorrow and to advance diet slowly after this. The patient does not currently have a general medical doctor. He is given 's referral information. He should follow-up with him on Monday, July 30. He has been advised to return to the ER if he has recurrent vomiting or has severe abdominal pain *DC/Admit/Observation/Transfer Diagnosis at time of Disposition: Nausea and vomiting, Cannabis dependence - Discharge Dispostion Disposition: HOME Condition at time of disposition: Stable - Referrals Referrals: Yemi Katz MD [Staff Physician] - 3 days - Patient Instructions Printed Discharge Instructions: DI for Nausea -- Adult Additional Instructions: Clear liquids only tomorrow; advance diet cautiously Zofran ODT 4 mg up to 3 times a day as needed for nausea Return to ER if he had severe vomiting, fever or increased abdominal pain Follow up with Dr. Katz within the next 3-4 days - Post Discharge Activity
== END 2018-07-28 01:07 | disposition home or self-care (01) ==
LOC: FER 19:09
PROC: 3E033GC Introduction of Other Therapeutic Substance into Peripheral Vein, Percutaneous Approach (ICD-10-PCS; principal; 2018-07-27)
PROC: 3E0337Z Introduction of Electrolytic and Water Balance Substance into Peripheral Vein, Percutaneous Approach (ICD-10-PCS; 2018-07-27)
DX: R11.2 Nausea with vomiting, unspecified (principal); F12.20 Cannabis dependence, uncomplicated; F17.210 Nicotine dependence, cigarettes, uncomplicated
CPT/HCPCS: 36415; 80053; 85025; 99283-25; J7030

== ENCOUNTER 2018-07-31 08:48 | Emergency (ER) | payer SELFPAY ==
[2018-07-31 09:03] VITALS: TEMP 98.8; BMI 23.1
[2018-07-31] MEDS ORDERED: SODIUM CHLORIDE 1,000 ML IV STA (09:22)
[2018-07-31] MEDS ORDERED: ONDANSETRON 4 MG/2 ML VIAL IVPUSH ONE (09:22)
[2018-07-31] MEDS ORDERED: PANTOPRAZOLE SODIUM 40 MG VIAL IVPUSH ONE (09:26)
--- NOTE | 2018-07-31 09:31 | PDOC ---
History of Present Illness - General Chief Complaint: Nausea/Vomiting Stated Complaint: VOMITING \NAUSEA Time Seen by Provider: 07/31/18 09:13 History Source: Patient Exam Limitations: No Limitations Past History - Past Medical History Allergies/Adverse Reactions: Allergies Allergy/AdvReac Type Severity Reaction Status Date / Time No Known Allergies Allergy Verified 06/21/18 14:42 Home Medications: Ambulatory Orders Metoclopramide HCl 10 mg PO AC 07/31/18 Anemia: No Asthma: No Cancer: No Cardiac Disorders: No CVA: No COPD: No CHF: No DVT: No Dementia: No Diabetes: No GI Disorders: Yes (GASTRITIS) Disorders: Yes (? polyuria) HTN: No Hypercholesterolemia: No Kidney Stones: No Liver Disease: No Seizures: No Thyroid Disease: No - Surgical History Abdominal Surgery: No Appendectomy: No Cardiac Surgery: No Cholecystectomy: No Lung Surgery: No Neurologic Surgery: No Orthopedic Surgery: Yes (surgery of right shoulder in 2008) - Reproductive History Testicular Surgery: No - Suicide/Smoking/Psychosocial Hx Smoking History: Never smoked Have you smoked in the past 12 months: Yes Number of Cigarettes Smoked Daily: 0 If you are a former smoker, when did you quit?: pt smokes marijuana not tobacco Cigars Per Day: 0 'Breaking Loose' booklet given: 06/21/18 Hx Alcohol Use: No Drug/Substance Use Hx: Yes (MARIJUANA) Substance Use Type: Marijuana, Opiates Hx 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) *Physical Exam - Vital Signs Last Vital Signs Temp Pulse Resp BP Pulse Ox 98.8 F 71 16 121/69 99 07/31/18 09:01 07/31/18 09:01 07/31/18 09:01 07/31/18 09:01 07/31/18 09:01 - Physical Exam General Appearance: No: Apparent Distress Respiratory/Chest: positive: Lungs Clear, Normal Breath Sounds. negative: Respiratory Distress Cardiovascular: positive: Regular Rhythm, Regular Rate, S1, S2. negative: Murmur Gastrointestinal/Abdominal: positive: Normal Bowel Sounds, Soft. negative: Tender, Distended, Guarding, Rebound Musculoskeletal: negative: CVA Tenderness Integumentary: positive: Normal Color Neurologic: positive: Alert, Normal Mood/Affect ED Treatment Course - LABORATORY CBC & Chemistry Diagram: 07/31/18 09:32 07/31/18 09:32 Medical Decision Making - Medical Decision Making 27 y/o M hx of cannabis use, gastritis presents with generalized abdominal pain , NBNB emesis x 4-5 days. Patient however has been suffering from this chronically for years. Was seen in [place] regarding this 4 days ago and then in [facility] 3 days ago. Last used marijuana 6 days ago. At home, patient has SL Zofran and Reglan; states SL zofran helps a little. Denies fever, sob, cp , diarrhea, urinary complaints. Denies alcohol use. Denies using other drugs. Likely cannabinoid hyperemesis syndrome Plan: Labs, IVF, Protonix D/W Dr. Peace - recommends trial of Haldol, EKG 07/31/18 09:28 EKG showed normal QT interval Patient received Haldol and on reassessment, was feeling better K was 3 - repleted; Mg checked and it was normal Patient tolerating PO, requesting to go home Given Benadryl as feeling a bit jittery after Haldol Stable for dc 07/31/18 11:21 *DC/Admit/Observation/Transfer Diagnosis at time of Disposition: Cannabinoid hyperemesis syndrome - Discharge Dispostion Disposition: HOME Condition at time of disposition: Improved Decision to Admit order: No - Referrals Referrals: Yemi Katz MD [Staff Physician] - 2 Days - Patient Instructions Additional Instructions: Thank you for choosing [facility]. It was a pleasure taking care of you. Refrain from smoking marijuna as it may worsen your symptoms Follow-up with your PCP in 2-3 days Return to the Emergency Department if your symptoms worsen or persist, you have fever, shortness of breath, chest pain, severe abdominal pain, vomiting, unable to keep down liquids or other concerning symptoms. - Post Discharge Activity
[2018-07-31] MEDS ORDERED: PANTOPRAZOLE SODIUM 40 MG/100 ML BAG IVPB ONE (09:39)
[2018-07-31 09:43] LABS: BASO % 0.4 % (0-2.0); EOS % 0.4 % (0-4.5); HEMATOCRIT 42.7 % (35.4-49); HEMOGLOBIN 14.3 GM/dL (11.7-16.9); LYMPH % 20.9 % (8-40); MCH 31.5 pg (25.7-33.7); MCHC 33.6 g/dl (32.0-35.9); MEAN CELL VOLUME 93.9 fl (80-96); MEAN PLT VOLUME 9.5 fl (7.5-11.1); MONO % 6.8 % (3.8-10.2); NEUT % 71.5 % (42.8-82.8); PLATELET COUNT 190 K/MM3 (134-434); RBC 4.54 M/mm3 (4.00-5.60); RDW 12.6 % (11.9-15.9); WHITE BLOOD COUNT 10.3 K/mm3 (4.0-10.0)
[2018-07-31] MEDS ORDERED: HALOPERIDOL LACTATE 5 MG/ML IM ONE ×2 (09:56→10:09)
[2018-07-31 10:17] VITALS: BP 131/78; PULSE 61
[2018-07-31 10:22] LABS: ALBUMIN 4.5 g/dl (3.4-5.0); BILIRUBIN,TOTAL 1.5 mg/dL (0.2-1); CALCIUM 9.1 mg/dL (8.5-10.1); TOT PROT 7.1 g/dl (6.4-8.2)
[2018-07-31] MEDS ORDERED: POTASSIUM CHLORIDE ORAL LIQUID 20 MEQ/15 ML PO ONE (10:38)
[2018-07-31 11:00] LABS: MAGNESIUM 2.2 mg/dL (1.8-2.4)
[2018-07-31] MEDS ORDERED: POTASSIUM CHLORIDE ORAL LIQUID 20 MEQ/15 ML ONE (11:03)
--- NOTE | 2018-07-31 12:06 | EKG ---
Test Reason : Blood Pressure : / mmHG Vent. Rate : 054 BPM Atrial Rate : 054 BPM P-R Int : 128 ms QRS Dur : 118 ms QT Int : 446 ms P-R-T Axes : 035 021 025 degrees QTc Int : 422 ms SINUS BRADYCARDIA INCOMPLETE RIGHT BUNDLE BRANCH BLOCK BORDERLINE ECG WHEN COMPARED WITH ECG OF 22-DEC-2014 13:26, NONSPECIFIC T WAVE ABNORMALITY NO LONGER EVIDENT IN LATERAL LEADS Confirmed by MD Dustin, Kvng ([id number]) on 07/31/2018 12:06:23 PM Referred By: Confirmed By:Kvng Chan MD
== END 2018-07-31 11:41 | disposition home or self-care (01) ==
LOC: JER 08:48
PROC: 3E033GC Introduction of Other Therapeutic Substance into Peripheral Vein, Percutaneous Approach (ICD-10-PCS; principal; 2018-07-31)
PROC: 3E0337Z Introduction of Electrolytic and Water Balance Substance into Peripheral Vein, Percutaneous Approach (ICD-10-PCS; 2018-07-31)
PROC: 3E023GC Introduction of Other Therapeutic Substance into Muscle, Percutaneous Approach (ICD-10-PCS; 2018-07-31)
DX: F12.188 Cannabis abuse with other cannabis-induced disorder (principal); R11.10 Vomiting, unspecified
CPT/HCPCS: 36415; 80053; 83690; 83735; 85025; 93005; 93010; 99283-25; J7030

== ENCOUNTER 2019-05-24 08:55 | Emergency (ER) | payer OTHER ==
[2019-05-24 09:12] VITALS: BP 123/77; PULSE 65; TEMP 98.2; BMI 23.1
[2019-05-24] MEDS ORDERED: KETOROLAC TROMETHAMINE 30 MG/1 ML VIAL IVPUSH ONE (09:36)
[2019-05-24] MEDS ORDERED: SODIUM CHLORIDE 1,000 ML IV STA (09:37)
[2019-05-24] MEDS ORDERED: ONDANSETRON 4 MG/2 ML VIAL IVPUSH ONE ×2 (09:37→11:21)
[2019-05-24] MEDS ORDERED: ONDANSETRON 4 MG/2 ML VIAL ONE ×2 (09:50→11:39)
[2019-05-24] MEDS ORDERED: KETOROLAC TROMETHAMINE 30 MG/1 ML VIAL ONE (09:50)
--- NOTE | 2019-05-24 10:11 | PDOC ---
History of Present Illness - General History Source: Patient - History of Present Illness Timing/Duration: reports: other Quality: reports: severe <Miguel Angel Sweeney - Last Filed: 05/24/19 12:04> <Billy Gould - Last Filed: 05/27/19 13:40> - General Chief Complaint: Pain Stated Complaint: VOMITING/ ABD. PAIN Time Seen by Provider: 05/24/19 09:33 Past History - Past Medical History Anemia: No Asthma: No Cancer: No Cardiac Disorders: No CVA: No COPD: No CHF: No DVT: No Dementia: No Diabetes: No GI Disorders: Yes (GASTRITIS) Disorders: Yes (? polyuria) HTN: No Hypercholesterolemia: No Kidney Stones: No Liver Disease: No Seizures: No Thyroid Disease: No - Surgical History Abdominal Surgery: No Appendectomy: No Cardiac Surgery: No Cholecystectomy: No Lung Surgery: No Neurologic Surgery: No Orthopedic Surgery: Yes (surgery of right shoulder in 2008) - Reproductive History Testicular Surgery: No - Psycho Social/Smoking Cessation Hx Smoking History: Never smoked Have you smoked in the past 12 months: Yes Number of Cigarettes Smoked Daily: 0 If you are a former smoker, when did you quit?: pt smokes marijuana not tobacco Cigars Per Day: 0 Information on smoking cessation initiated: No 'Breaking Loose' booklet given: 06/21/18 Hx Alcohol Use: No Drug/Substance Use Hx: No Substance Use Type: Marijuana, Opiates Hx 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) <Miguel Angel Sweeney - Last Filed: 05/24/19 12:04> <Billy Gould - Last Filed: 05/27/19 13:40> - Past Medical History Allergies/Adverse Reactions: Allergies Allergy/AdvReac Type Severity Reaction Status Date / Time No Known Allergies Allergy Verified 05/24/19 20:44 Home Medications: Ambulatory Orders Metoclopramide HCl 10 mg PO AC 07/31/18 Acetaminophen [Tylenol -] 650 mg PO Q6H #30 tablet 05/24/19 Famotidine [Pepcid] 20 mg PO BID #14 tablet 05/24/19 Mag Hydrox/Al Hydrox/Simeth [Mylanta Suspension -] 30 ml PO Q6H #1 bottle 05/24/19 Ondansetron HCl [Zofran] 4 mg PO Q6H #12 tablet 05/24/19 Ondansetron [Zofran -] 4 mg PO TID PRN #21 tablet 05/24/19 Abd/GI Specific PMHX - Complaint Specific PMHX Hepatitis: No Pancreatitis: No <Miguel Angel Sweeney - Last Filed: 05/24/19 12:04> Review of Systems - Review of Systems Constitutional: No: Chills, Fever ABD/GI: Yes: Nausea, Vomiting, Abdominal cramping. No: Constipated, Diarrhea, Rectal Bleeding, Tarry Stools : No: Dysuria <Miguel Angel Sweeney - Last Filed: 05/24/19 12:04> *Physical Exam - Vital Signs Last Vital Signs Temp Pulse Resp BP Pulse Ox 98.2 F 65 17 123/77 99 05/24/19 09:09 05/24/19 09:09 05/24/19 09:09 05/24/19 09:09 05/24/19 09:09 - Physical Exam 05/24/19 12:04 appears very uncomfortable, actively vomiting General Appearance: Yes: Appropriately Dressed, Severe Distress HEENT: positive: Normal Voice Neck: positive: Supple Gastrointestinal/Abdominal: positive: Normal Bowel Sounds, Tender (diffuse ttp), Soft. negative: Distended, Guarding, Rebound Musculoskeletal: negative: CVA Tenderness Integumentary: positive: Dry, Warm Neurologic: positive: Fully Oriented, Alert, Normal Mood/Affect <Miguel Angel Sweeney Last Filed: 05/24/19 12:04> - Vital Signs Last Vital Signs Temp Pulse Resp BP Pulse Ox 98.2 F 65 17 123/77 99 05/24/19 09:09 05/24/19 09:09 05/24/19 09:09 05/24/19 09:09 05/24/19 09:09 <Billy Gould - Last Filed: 05/27/19 13:40> ED Treatment Course - LABORATORY CBC & Chemistry Diagram: 05/24/19 09:48 05/24/19 09:48 <Miguel Angel Sweeney - Last Filed: 05/24/19 12:04> - LABORATORY CBC & Chemistry Diagram: 05/24/19 09:48 05/24/19 09:48 - ADDITIONAL ORDERS Additional order review: 05/24/19 09:48 RBC 4.61 MCV 94.8 MCHC 34.2 RDW 13.4 MPV 9.6 Neutrophils % 81.0 Lymphocytes % 13.2 D Monocytes % 5.1 Eosinophils % 0.3 Basophils % 0.4 - Medications Given in the ED: ED Medications Discontinued Medications Generic Name Dose Route Start Last Admin Trade Name Mayuri PRN Reason Stop Dose Admin Acetaminophen 1,000 mg 05/24/19 11:21 05/24/19 11:56 Ofirmev Injection - IVPB 05/24/19 11:22 1,000 mg ONCE ONE Administration Al Hydroxide/Mg Hydroxide 30 ml 05/24/19 11:21 05/24/19 11:56 Mylanta Suspension - PO 05/24/19 11:22 30 ml ONCE ONE Administration Sodium Chloride 1,000 mls @ 1,000 mls/hr 05/24/19 09:37 05/24/19 10:00 Normal Saline - IV 05/24/19 10:36 1,000 mls/hr ASDIR STA Administration Famotidine/Sodium Chloride 20 mg in 50 mls @ 100 mls/hr 05/24/19 11:21 05/24/19 11:56 Pepcid 20 Mg Premixed Ivpb - IVPB 05/24/19 11:50 100 mls/hr ONCE ONE Administration Ketorolac Tromethamine 30 mg 05/24/19 09:36 05/24/19 10:00 Toradol Injection - IVPUSH 05/24/19 09:37 30 mg ONCE ONE Administration Ondansetron HCl 4 mg 05/24/19 09:37 05/24/19 10:00 Zofran Injection IVPUSH 05/24/19 09:38 4 mg ONCE ONE Administration Ondansetron HCl 4 mg 05/24/19 11:21 05/24/19 11:56 Zofran Injection IVPUSH 05/24/19 11:22 4 mg ONCE ONE Administration <Billy Gould - Last Filed: 05/27/19 13:40> Medical Decision Making - Medical Decision Making 05/24/19 09:48 28-year-old male, history of gastritis, smokes cannabis daily with multiple ER visits for nausea and vomiting, here with similar symptoms that started 3 days ago with diffuse abdominal pain consistent with his priors episodes. No change in bowel movements fever or chills. Last smoked marijuana was this a.m. States he does not drink alcohol see exam N/V w/ abd pain Recurrent, c/w prior ED visits for cannibus hyperemesis per pt, continues to smoker marijuana [place] uncomfortable w/ diffuse ttp -symptomatic management -labs -reassess 05/24/19 12:16 Labs unremarkable, WBC 13 but most likely due to nausea/vomiting. Abdomen benign on reassessment and patient able to tolerate p.o. Had lengthy discussion with patient informing him that symptoms might be due to his chronic marijuana use and that he should strongly consider cessation of drugs. To return as needed <Miguel Angel Sweeney - Last Filed: 05/24/19 12:04> - Medical Decision Making 05/27/19 13:40 I reviewed the case of the mid-level practitioner and was available for consultation while in the emergency department <Billy Gould - Last Filed: 05/27/19 13:40> Discharge - Discharge Information Problems reviewed: Yes <Miguel Angel Sweeney - Last Filed: 05/24/19 12:04> <Billy Gould - Last Filed: 05/27/19 13:40> - Discharge Information Clinical Impression/Diagnosis: Nausea and vomiting Qualifiers: Vomiting type: unspecified Vomiting Intractability: non-intractable Qualified Code(s): R11.2 - Nausea with vomiting, unspecified Condition: Improved Disposition: HOME - Additional Discharge Information Prescriptions: Mag Hydrox/Al Hydrox/Simeth [Mylanta Suspension -] 30 ml PO Q6H #1 bottle Famotidine [Pepcid] 20 mg PO BID #14 tablet Acetaminophen [Tylenol -] 650 mg PO Q6H #30 tablet Ondansetron HCl [Zofran] 4 mg PO Q6H #12 tablet - Patient Discharge Instructions Additional Instructions: Your symptoms may be due to chronic marijuana use. As discussed today we strongly advise you to smoking marijuana. Take medications as prescribed and maintain adequate hydration If symptoms recurs or worsen return to the ER - Post Discharge Activity Work/Back to School Note: Back to Work
[2019-05-24 10:25] LABS: BASO % 0.4 % (0-2.0); EOS % 0.3 % (0-4.5); HEMATOCRIT 43.7 % (35.4-49); LYMPH % 13.2 % (8-40); MCH 32.4 pg (25.7-33.7); MCHC 34.2 g/dl (32.0-35.9); MEAN CELL VOLUME 94.8 fl (80-96); MEAN PLT VOLUME 9.6 fl (7.5-11.1); MONO % 5.1 % (3.8-10.2); PLATELET COUNT 211 K/MM3 (134-434); RBC 4.61 M/mm3 (4.00-5.60); RDW 13.4 % (11.9-15.9); WHITE BLOOD COUNT 13.8 K/mm3 (4.0-10.0)
[2019-05-24 10:48] LABS: BILIRUBIN,TOTAL 0.9 mg/dL (0.2-1); BLOOD UREA NITROGEN 18.1 mg/dL (7-18); CALCIUM 9.1 mg/dL (8.5-10.1); CREATININE 1.2 mg/dL (0.55-1.3); POTASSIUM 3.5 mmol/L (3.5-5.1); TOT PROT 7.2 g/dl (6.4-8.2)
[2019-05-24] MEDS ORDERED: ACETAMINOPHEN 1000 MG/100 ML VIAL (NON FORMULARY) IVPB ONE (11:21)
[2019-05-24] MEDS ORDERED: MAG HYDROX/AL HYDROX/SIMETH -MYLANTA- ORAL SUSPENSION PO ONE (11:21)
[2019-05-24] MEDS ORDERED: FAMOTIDINE 20 MG/50 ML IVPB 20 MG/50 ML MG IVPB ONE ×2 (11:21→11:39)
[2019-05-24] MEDS ORDERED: MAG HYDROX/AL HYDROX/SIMETH 30 ML UNIT-DOSE CUP ONE (11:38)
[2019-05-24] MEDS ORDERED: ACETAMINOPHEN INJECTION 100 ML IVPB ONE (11:38)
[2019-05-24 12:44] LABS: EPI CELLS 5.6 /HPF (0-5/HPF); HYALINE CASTS 75 /lpf (0-8); URINE APPEARANCE CLOUDY; URINE BACTERIA 4.3 /hpf (NEGATIVE); URINE BILIRUBIN 1+ (NEGATIVE); URINE COLOR DK YELLOW; URINE GLUCOSE (UA) NEGATIVE (NEGATIVE); URINE KETONE TRACE (NEGATIVE); URINE LEUK ESTERASE TRACE (NEGATIVE); URINE NITRITE NEGATIVE (NEGATIVE); URINE PROTEIN 1+ (NEGATIVE); URINE RBC 3 /hpf (0-4); URINE WBC 8 /hpf (0-5)
[2019-05-24 12:58] LABS: COCAINE, UR NEGATIVE ng/ml (CUTOFF=300); METHADONE, UR NEGATIVE ng/ml (CUTOFF=300); OPIATES, URI NEGATIVE ng/ml (CUTOFF=300); PHENCYCLIDINE,URINE NEGATIVE ng/ml (CUTOFF=25); URINE AMPHETAMINES NEGATIVE ng/ml (CUTOFF=500); URINE BARBITURATES NEGATIVE ng/ml (CUTOFF=200); URINE BENZODIAZEPINES NEGATIVE ng/ml (CUTOFF=200)
== END 2019-05-24 12:17 | disposition home or self-care (01) ==
LOC: JER 08:55
PROC: 3E033NZ Introduction of Analgesics, Hypnotics, Sedatives into Peripheral Vein, Percutaneous Approach (ICD-10-PCS; principal; 2019-05-24)
PROC: 3E033GC Introduction of Other Therapeutic Substance into Peripheral Vein, Percutaneous Approach (ICD-10-PCS; 2019-05-24)
PROC: 3E0333Z Introduction of Anti-inflammatory into Peripheral Vein, Percutaneous Approach (ICD-10-PCS; 2019-05-24)
PROC: 3E0337Z Introduction of Electrolytic and Water Balance Substance into Peripheral Vein, Percutaneous Approach (ICD-10-PCS; 2019-05-24)
DX: R11.2 Nausea with vomiting, unspecified (principal)
CPT/HCPCS: 36415; 80053; 80307; 81003; 83690; 85025; 99284-25; J0131; J7030

== ENCOUNTER 2019-05-24 20:36 | Emergency (ER) | payer OTHER ==
[2019-05-24 20:49] VITALS: BMI 23.1
[2019-05-24] MEDS ORDERED: ONDANSETRON 4 MG/2 ML VIAL IVPUSH ONE (21:14)
[2019-05-24] MEDS ORDERED: SODIUM CHLORIDE 1,000 ML IV STA (21:14)
[2019-05-24] MEDS ORDERED: ONDANSETRON 4 MG/2 ML VIAL ONE (21:16)
[2019-05-24 21:52] LABS: BASO % 0.6 % (0-2.0); EOS % 0.2 % (0-4.5); HEMATOCRIT 42.5 % (35.4-49); HEMOGLOBIN 14.7 GM/dL (11.7-16.9); LYMPH % 17.7 % (8-40); MCH 32.8 pg (25.7-33.7); MCHC 34.6 g/dl (32.0-35.9); MEAN CELL VOLUME 94.7 fl (80-96); MEAN PLT VOLUME 9.4 fl (7.5-11.1); NEUT % 73.5 % (42.8-82.8); PLATELET COUNT 216 K/MM3 (134-434); RBC 4.49 M/mm3 (4.00-5.60); RDW 13.1 % (11.9-15.9)
--- NOTE | 2019-05-24 21:56 | PDOC ---
History of Present Illness - General History Source: Patient Exam Limitations: No Limitations - History of Present Illness Travel History: No Initial Comments: 05/24/19 21:53 HISTORY OF PRESENT ILLNESS: 28-year-old male denies medical history presents emergency department for evaluation of diffuse abdominal pain/cramping, nausea, nonbilious nonbloody vomiting, nonbloody diarrhea over the past 4 days. Patient reports he ate [employer] the night before his symptoms had started. He denies any sick contacts. He reports his last episode of diarrhea was approximately 24 hours ago and he has not moved his bowels since then. Patient reports difficulty tolerating solid foods but is drinking liquids without difficulty. No recent travel or sick contacts. PAST MEDICAL HISTORY: Denies past medical history SURGICAL HISTORY: Denies ALLERGIES: No known drug allergies REVIEW OF SYSTEMS General/Constitutional: Denies fever or chills. Denies weakness, weight change. HEENT: Denies change in vision. Denies ear pain or discharge. Denies sore throat. Cardiovascular: Denies chest pain or shortness of breath. Respiratory: Denies cough, wheezing, or hemoptysis. Gastrointestinal: See HPI Genitourinary: Denies dysuria, frequency, or change in urination. Musculoskeletal: Denies joint or muscle swelling or pain. Denies neck or back pain. Skin and breasts: Denies rash or easy bruising. Neurologic: Denies headache, vertigo, loss of consciousness, or loss of sensation. Psychiatric: Denies depression or anxiety. Endocrine: Denies increased thirst. Denies abnormal weight change. Hematologic/Lymphatic: Denies anemia, easy bleeding, or history of blood clots. Allergic/Immunologic: Denies hives or skin allergy. Denies latex allergy. PHYSICAL EXAM General Appearance: Well-appearing, appropriately dressed. No apparent di stress, no intoxication. Gastrointestinal/Abdominal: Normal bowel sounds. Abdomen soft, non-distended. No tenderness or rebound tenderness. No organomegaly, pulsatile mass, guarding, hernia, hepatomegaly, splenomegaly. <Iban Johnson - Last Filed: 05/24/19 23:41> <Melanie Snyder - Last Filed: 05/25/19 22:18> - General Chief Complaint: Vomiting/Diarrhea Stated Complaint: VOMITING/ABD PAIN Time Seen by Provider: 05/24/19 21:10 Past History - Past Medical History Anemia: No Asthma: No Cancer: No Cardiac Disorders: No CVA: No COPD: No CHF: No DVT: No Dementia: No Diabetes: No GI Disorders: Yes (GASTRITIS) Disorders: Yes (? polyuria) HTN: No Hypercholesterolemia: No Kidney Stones: No Liver Disease: No Seizures: No Thyroid Disease: No - Surgical History Abdominal Surgery: No Appendectomy: No Cardiac Surgery: No Cholecystectomy: No Lung Surgery: No Neurologic Surgery: No Orthopedic Surgery: Yes (surgery of right shoulder in 2008) - Reproductive History Testicular Surgery: No - Immunization History Immunization Up to Date: No - Psycho Social/Smoking Cessation Hx Smoking History: Never smoked Have you smoked in the past 12 months: Yes Number of Cigarettes Smoked Daily: 0 If you are a former smoker, when did you quit?: pt smokes marijuana not tobacco Cigars Per Day: 0 'Breaking Loose' booklet given: 06/21/18 Hx Alcohol Use: No Drug/Substance Use Hx: No Substance Use Type: Marijuana, Opiates Hx 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) <Iban Johnson - Last Filed: 05/24/19 23:41> <Melanie Snyder - Last Filed: 05/25/19 22:18> - Past Medical History Allergies/Adverse Reactions: Allergies Allergy/AdvReac Type Severity Reaction Status Date / Time No Known Allergies Allergy Verified 05/24/19 20:44 Home Medications: Ambulatory Orders Metoclopramide HCl 10 mg PO AC 07/31/18 Acetaminophen [Tylenol -] 650 mg PO Q6H #30 tablet 05/24/19 Famotidine [Pepcid] 20 mg PO BID #14 tablet 05/24/19 Mag Hydrox/Al Hydrox/Simeth [Mylanta Suspension -] 30 ml PO Q6H #1 bottle 05/24/19 Ondansetron HCl [Zofran] 4 mg PO Q6H #12 tablet 05/24/19 Ondansetron [Zofran -] 4 mg PO TID PRN #21 tablet 05/24/19 Abd/GI Specific PMHX - Complaint Specific PMHX Hepatitis: No Pancreatitis: No <Iban Johnson - Last Filed: 05/24/19 23:41> *Physical Exam - Vital Signs Last Vital Signs Temp Pulse Resp BP Pulse Ox 99.8 F H 66 18 132/83 99 03/06/20 20:41 05/24/19 20:41 05/24/19 20:41 05/24/19 20:41 05/24/19 20:41 <Iban Johnson - Last Filed: 05/24/19 23:41> - Vital Signs Last Vital Signs Temp Pulse Resp BP Pulse Ox 100.6 F H 60 18 114/70 100 05/24/19 22:05 05/24/19 22:05 05/24/19 20:41 05/24/19 22:05 05/24/19 22:05 <Melanie Snyder - Last Filed: 05/25/19 22:18> ED Treatment Course - LABORATORY CBC & Chemistry Diagram: 05/24/19 21:30 05/24/19 21:30 - Medications Given in the ED: ED Medications Discontinued Medications Generic Name Dose Route Start Last Admin Trade Name Mayuri PRN Reason Stop Dose Admin Ondansetron HCl 4 mg 05/24/19 21:14 05/24/19 21:31 Zofran Injection IVPUSH 05/24/19 21:15 4 mg ONCE ONE Administration <Iban Johnsno - Last Filed: 05/24/19 23:41> - LABORATORY CBC & Chemistry Diagram: 05/24/19 21:30 05/24/19 21:30 - ADDITIONAL ORDERS Additional order review: Laboratory Results 05/24/19 05/24/19 22:40 21:30 Sodium 143 Potassium 3.6 Chloride 108 H Carbon Dioxide 29 Anion Gap 7 L BUN 15.4 Creatinine 1.2 Est GFR (CKD-EPI)AfAm 94.14 Est GFR (CKD-EPI)NonAf 81.23 Random Glucose 92 Calcium 8.5 Total Bilirubin 0.9 AST 22 ALT 33 Alkaline Phosphatase 81 Total Protein 7.4 Albumin 4.1 Lipase 51 L Urine Color Yellow Urine Appearance Clear Urine pH 6.0 Ur Specific Field[place] 1.021 Urine Protein Negative Urine Glucose (UA) Negative Urine Ketones Trace H Urine Blood Negative Urine Nitrite Negative Urine Bilirubin Negative Urine Urobilinogen 0.2 Ur Leukocyte Esterase Negative 05/24/19 21:30 RBC 4.49 MCV 94.7 MCHC 34.6 RDW 13.1 MPV 9.4 Neutrophils % 73.5 Lymphocytes % 17.7 D Monocytes % 8.0 Eosinophils % 0.2 Basophils % 0.6 - Medications Given in the ED: ED Medications Discontinued Medications Generic Name Dose Route Start Last Admin Trade Name Mayuri PRN Reason Stop Dose Admin Acetaminophen 1,000 mg 05/24/19 22:25 05/24/19 22:38 Ofirmev Injection - IVPB 05/24/19 22:26 1,000 mg ONCE ONE Administration Sodium Chloride 1,000 mls @ 1,000 mls/hr 05/24/19 21:14 05/24/19 21:31 Normal Saline - IV 05/24/19 22:13 1,000 mls/hr ASDIR STA Administration Ondansetron HCl 4 mg 05/24/19 21:14 05/24/19 21:31 Zofran Injection IVPUSH 05/24/19 21:15 4 mg ONCE ONE Administration <Melanie Snyder - Last Filed: 05/25/19 22:18> Medical Decision Making - Medical Decision Making 05/24/19 21:54 A/P: 28-year-old male with nausea, vomiting, diarrhea and diffuse abdominal pain over 4 days Abdominal exam is benign Most likely gastroenteritis but cannot exclude gastritis, obstruction, perforation Labs including lipase Normal saline 1 L IV bolus Zofran 4 mg IV push Reassess-low threshold to image. 05/24/19 23:41 Laboratory Tests 05/24/19 05/24/19 05/24/19 21:30 21:30 22:40 WBC 10.0 RBC 4.49 Hgb 14.7 Hct 42.5 MCV 94.7 MCH 32.8 MCHC 34.6 RDW 13.1 Plt Count 216 MPV 9.4 Absolute Neuts (auto) 7.3 Neutrophils % 73.5 Lymphocytes % 17.7 D Monocytes % 8.0 Eosinophils % 0.2 Basophils % 0.6 Nucleated RBC % 0 Sodium 143 Potassium 3.6 Chloride 108 H Carbon Dioxide 29 Anion Gap 7 L BUN 15.4 Creatinine 1.2 Est GFR (CKD-EPI)AfAm 94.14 Est GFR (CKD-EPI)NonAf 81.23 Random Glucose 92 Calcium 8.5 Total Bilirubin 0.9 AST 22 ALT 33 Alkaline Phosphatase 81 Total Protein 7.4 Albumin 4.1 Lipase 51 L Urine Color Yellow Urine Appearance Clear Urine pH 6.0 Ur Specific Fieldon 1.021 Urine Protein Negative Urine Glucose (UA) Negative Urine Ketones Trace H Urine Blood Negative Urine Nitrite Negative Urine Bilirubin Negative Urine Urobilinogen 0.2 Ur Leukocyte Esterase Negative Abdominal exam remains benign. Patient reports pain is starting to worsen again after receiving Tylenol. Pepcid, Maalox, Toradol Discharge home I discussed the physical exam findings, ancillary test results and final diagnoses with the patient. I answered all of the patient's questions. The patient was satisfied with the care received and felt comfortable with the discharge plan and treatment plan. The patient will call their primary care physician within 24 hours to arrange follow-up and will return to the Emergency Department with any new, persistent or worsening symptoms. Portions of this note have been documented using voice recognition software. As a result, errors may occur in the edge stainer process. Effort has been made to correct all grammatical and edge stainer error, but some may have been missed which may produce sporadic inaccurate edge stainer or nonsensical phrases. <Iban Johnson - Last Filed: 05/24/19 23:41> - Medical Decision Making The patient was seen and evaluated in conjunction with midlevel provider under my direct supervision, ancillary studies were reviewed. I agree with the plan as outlined with CARROTING MACHINE OPERATOR Alex. HPI, workup/dispo as outlined. VS reviewed, wnl. IVF, supportive care labs and lytes unremarkable anticipate discharge, pcp followup, return precautions 05/24/19 22:49 <Melanie Snyder - Last Filed: 05/25/19 22:18> Discharge - Discharge Information Problems reviewed: Yes - Admission No <Iban Johnson - Last Filed: 05/24/19 23:41> - Discharge Information Problems reviewed: Yes <Melanie Snyder - Last Filed: 05/25/19 22:18> - Discharge Information Clinical Impression/Diagnosis: Nausea, vomiting and diarrhea Condition: Good Disposition: HOME - Additional Discharge Information Prescriptions: Ondansetron [Zofran -] 4 mg PO TID PRN #21 tablet PRN Reason: Nausea And/Or Vomiting - Patient Discharge Instructions Additional Instructions: Rest, drink lots of fluids: Teas, water, soups Mary stan, carbonated beverages for the bubbles May try peppermint teas Avoid heavy , spicy or fatty foods until symptoms have resolved Avoid contact with others until fevers and symptoms resolved Lots of handwashing and good hygiene Continue [id number] medications for symptomatic relief Tylenol or Motrin for fever and pain May use Zofran-one tablet dissolved on tongue as needed for nauseousness. May repeat times one every 8 hours Followup with private physician in one to 2 days as needed Return to emergency department for worsened symptoms, fevers, dehydration
[2019-05-24 22:06] VITALS: BP 114/70; PULSE 60
[2019-05-24] MEDS ORDERED: ACETAMINOPHEN 1000 MG/100 ML VIAL (NON FORMULARY) IVPB ONE (22:25)
[2019-05-24 22:27] LABS: ALBUMIN 4.1 g/dl (3.4-5.0); BILIRUBIN,TOTAL 0.9 mg/dL (0.2-1); BLOOD UREA NITROGEN 15.4 mg/dL (7-18); CALCIUM 8.5 mg/dL (8.5-10.1); CREATININE 1.2 mg/dL (0.55-1.3); POTASSIUM 3.6 mmol/L (3.5-5.1); TOT PROT 7.4 g/dl (6.4-8.2)
[2019-05-24] MEDS ORDERED: ACETAMINOPHEN INJECTION 100 ML IVPB ONE (22:31)
[2019-05-24 22:47] LABS: URINE APPEARANCE CLEAR; URINE BILIRUBIN NEGATIVE (NEGATIVE); URINE COLOR YELLOW; URINE GLUCOSE (UA) NEGATIVE (NEGATIVE); URINE KETONE TRACE (NEGATIVE); URINE LEUK ESTERASE NEGATIVE (NEGATIVE); URINE NITRITE NEGATIVE (NEGATIVE); URINE PROTEIN NEGATIVE (NEGATIVE); URINE UROBILINOGEN 0.2 mg/dL (0.2-1.0)
[2019-05-24 23:24] VITALS: TEMP 97.9
[2019-05-24] MEDS ORDERED: MAG HYDROX/AL HYDROX/SIMETH -MYLANTA- ORAL SUSPENSION PO ONE (23:43)
[2019-05-24] MEDS ORDERED: FAMOTIDINE 10 MG TABLET PO ONE (23:43)
[2019-05-24] MEDS ORDERED: KETOROLAC TROMETHAMINE 15 MG/ML VIAL IVPUSH ONE (23:43)
[2019-05-24] MEDS ORDERED: FAMOTIDINE 20 MG TABLET ONE (23:51)
[2019-05-24] MEDS ORDERED: MAG HYDROX/AL HYDROX/SIMETH 30 ML UNIT-DOSE CUP ONE (23:52)
[2019-05-24] MEDS ORDERED: KETOROLAC TROMETHAMINE 15 MG/ML VIAL ONE (23:52)
[2019-05-24] MEDS ORDERED: FAMOTIDINE 20 MG TABLET PO ONE (23:53)
== END 2019-05-25 00:02 | disposition home or self-care (01) ==
LOC: JER 20:36
PROC: 3E033NZ Introduction of Analgesics, Hypnotics, Sedatives into Peripheral Vein, Percutaneous Approach (ICD-10-PCS; principal; 2019-05-24)
PROC: 3E0333Z Introduction of Anti-inflammatory into Peripheral Vein, Percutaneous Approach (ICD-10-PCS; 2019-05-24)
PROC: 3E033GC Introduction of Other Therapeutic Substance into Peripheral Vein, Percutaneous Approach (ICD-10-PCS; 2019-05-24)
DX: K52.9 Noninfective gastroenteritis and colitis, unspecified (principal)
CPT/HCPCS: 36415; 80053; 81003; 83690; 85025; 87086; 99284-25; J0131; J7030

== ENCOUNTER 2020-10-04 18:07 | Emergency (ER) | payer OTHER ==
[2020-10-04] MEDS ORDERED: ONDANSETRON 4 MG/2 ML VIAL IVPUSH ONE (18:19)
[2020-10-04 18:29] VITALS: BP 123/62; PULSE 57; TEMP 99.7; BMI 24.4
[2020-10-04] MEDS ORDERED: SODIUM CHLORIDE 0.9% 1000 ML INFUS.BAG IV ONE (18:30)
[2020-10-04] MEDS ORDERED: ONDANSETRON 4 MG/2 ML VIAL ONE (18:31)
[2020-10-04 18:38] LABS: BASO % 0.9 % (0-2.0); EOS % 0.4 % (0-4.5); HEMATOCRIT 44.3 % (35.4-49); HEMOGLOBIN 15.1 GM/dL (11.7-16.9); LYMPH % 19.3 % (8-40); MCH 32.3 pg (25.7-33.7); MCHC 34.2 g/dl (32.0-35.9); MEAN CELL VOLUME 94.4 fl (80-96); MEAN PLT VOLUME 8.3 fl (7.5-11.1); MONO % 5.6 % (3.8-10.2); NEUT % 73.8 % (42.8-82.8); PLATELET COUNT 241 10^3/uL (134-434); RBC 4.69 M/mm3 (4.00-5.60); RDW 13.5 % (11.9-15.9); WHITE BLOOD COUNT 10.7 K/mm3 (4.0-10.0)
[2020-10-04] MEDS ORDERED: MAG HYDROX/AL HYDROX/SIMETH 30 ML UNIT-DOSE CUP PO ONE (18:40)
[2020-10-04] MEDS ORDERED: ACETAMINOPHEN 1000 MG/100 ML VIAL (NON FORMULARY) IVPB ONE (18:40)
[2020-10-04] MEDS ORDERED: FAMOTIDINE 20 MG/50 ML IVPB 20 MG/50 ML MG IVPB ONE ×2 (18:40→18:46)
[2020-10-04] MEDS ORDERED: MAG HYDROX/AL HYDROX/SIMETH 30 ML UNIT-DOSE CUP ONE (18:45)
[2020-10-04] MEDS ORDERED: ACETAMINOPHEN INJECTION 100 ML IVPB ONE (18:45)
[2020-10-04 19:07] LABS: ALBUMIN 4.5 g/dl (3.4-5.0); BLOOD UREA NITROGEN 8.3 mg/dL (7-18); CALCIUM 9.5 mg/dL (8.5-10.1)
[2020-10-04 19:12] LABS: BILIRUBIN,TOTAL 0.8 mg/dL (0.2-1); TOT PROT 7.9 g/dl (6.4-8.2)
[2020-10-04] MEDS ORDERED: ONDANSETRON 4 MG TABLET PO ONE (19:51)
[2020-10-04] MEDS ORDERED: ONDANSETRON *ODT* 4 MG TABLET ONE (19:52)
== END 2020-10-04 19:56 | disposition short-term general hospital (02) ==
LOC: JER 18:07
PROC: 3E033NZ Introduction of Analgesics, Hypnotics, Sedatives into Peripheral Vein, Percutaneous Approach (ICD-10-PCS; principal; 2020-10-04)
PROC: 3E033GC Introduction of Other Therapeutic Substance into Peripheral Vein, Percutaneous Approach (ICD-10-PCS; 2020-10-04)
PROC: 3E033GC Introduction of Other Therapeutic Substance into Peripheral Vein, Percutaneous Approach (ICD-10-PCS; 2020-10-04)
DX: F11.23 Opioid dependence with withdrawal (principal)
CPT/HCPCS: 36415; 80053; 85025; 93005; 93010; 99283-25; J0131

== ENCOUNTER 2020-10-06 10:12 | Inpatient (IN) | payer OTHER ==
[2020-10-06] MEDS ORDERED: LACTATED RINGERS SOLUTION 1000 ML INFUS.BAG IV ONE (10:41)
[2020-10-06] MEDS ORDERED: ACETAMINOPHEN 1000 MG/100 ML VIAL (NON FORMULARY) IVPB ONE ×2 (10:41→18:33)
[2020-10-06] MEDS ORDERED: FAMOTIDINE 20 MG/50 ML IVPB 20 MG/50 ML MG IVPB ONE ×2 (10:41→11:12)
[2020-10-06] MEDS ORDERED: ONDANSETRON 4 MG/2 ML VIAL IVPUSH ONE ×2 (10:41→14:06)
[2020-10-06 10:47] VITALS: BMI 23.1
[2020-10-06] MEDS ORDERED: ONDANSETRON 4 MG/2 ML VIAL ONE ×2 (11:11→14:41)
[2020-10-06] MEDS ORDERED: ACETAMINOPHEN INJECTION 100 ML IVPB ONE (11:11)
[2020-10-06] MEDS ORDERED: MAG HYDROX/AL HYDROX/SIMETH 30 ML UNIT-DOSE CUP PO ONE (14:20)
[2020-10-06] MEDS ORDERED: HALOPERIDOL LACTATE 5 MG/ML IV ONE (14:35)
[2020-10-06] MEDS ORDERED: MAG HYDROX/AL HYDROX/SIMETH 30 ML UNIT-DOSE CUP ONE (14:41)
[2020-10-06] MEDS ORDERED: HALOPERIDOL LACTATE 5 MG/ML ONE (14:41)
[2020-10-06] MEDS ORDERED: KETOROLAC TROMETHAMINE 15 MG/ML VIAL IVPUSH ONE (18:39)
[2020-10-06] MEDS ORDERED: LACTATED RINGERS SOLUTION 1,000 ML/1,000 ML INFUS.BAG IV SCH (18:45)
[2020-10-06] MEDS ORDERED: ACETAMINOPHEN 1000 MG/100 ML VIAL (NON FORMULARY) IVPB PRN ×2 (18:54→22:48)
[2020-10-06] MEDS ORDERED: PIPERACILLIN/TAZOB 3.375 GM 3.375 GM in DEXTROSE 5%-WATER - 50 ML IVPB ONE (20:07)
[2020-10-06] MEDS ORDERED: KETOROLAC TROMETHAMINE 15 MG/ML VIAL ONE (20:29)
[2020-10-06] MEDS ORDERED: PIPERACILLIN/TAZOB 3.375 GM 3.375 GM/50 ML BAG IVPB ONE (20:29)
[2020-10-06] MEDS ORDERED: SODIUM CHLORIDE 0.9% 500 ML INFUS.BAG IV ONE (22:46)
[2020-10-06] MEDS ORDERED: SODIUM CHLORIDE 1,000 ML IV SCH (23:00)
[2020-10-07 05:48] VITALS: BP 133/77; PULSE 56; TEMP 98.8
[2020-10-07] MEDS ORDERED: PIPERACILLIN/TAZOB 3.375 GM 3.375 GM in DEXTROSE 5%-WATER - 50 ML IVPB SCH ×4 (11:30→18:00)
[2020-10-07] MEDS ORDERED: DEXTROSE 5%-WATER - 50 ML IVPB ONE (11:43)
[2020-10-07] MEDS ORDERED: PIPERACILLIN/TAZOBACTAM 3.375 GM VIAL IVPB ONE (11:43)
== END 2020-10-06 23:35 | disposition left against medical advice (07) | DRG 254 ==
LOC: JER 10:12 → JERBED 18:23 → J6S 10-07 03:33 → JERBED 10-07 03:33 → J6S 10-07 13:46
PROVIDERS: ADMIT Internal Medicine; ATTEND Nurse Practitioner Family
DX: K35.80 Unspecified acute appendicitis (principal); F17.210 Nicotine dependence, cigarettes, uncomplicated; F11.10 Opioid abuse, uncomplicated; I45.10 Unspecified right bundle-branch block; D18.00 Hemangioma unspecified site; K76.9 Liver disease, unspecified; F12.20 Cannabis dependence, uncomplicated
CPT/HCPCS: 36415; 74177-TC; 76705-TC; 80053; 83690; 84484; 85025; 85610; 85730; 86850; 86900; 86901; 93005; 93010; 99285-25; C9803; J0131; Q9967; U0003; U0005

== ENCOUNTER 2020-10-06 23:36 | Day surgery (SDC) | payer OTHER ==
[2020-10-06 11:12] LABS: BASO % 0.6 % (0-2.0); EOS % 0.6 % (0-4.5); HEMATOCRIT 44.2 % (35.4-49); LYMPH % 19.9 % (8-40); MCH 32.1 pg (25.7-33.7); MCHC 33.9 g/dl (32.0-35.9); MEAN CELL VOLUME 94.7 fl (80-96); MEAN PLT VOLUME 8.2 fl (7.5-11.1); MONO % 6.4 % (3.8-10.2); NEUT % 72.5 % (42.8-82.8); PLATELET COUNT 220 10^3/uL (134-434); RBC 4.67 M/mm3 (4.00-5.60); RDW 13.2 % (11.9-15.9); WHITE BLOOD COUNT 11.7 K/mm3 (4.0-10.0)
[2020-10-06 11:28] LABS: CHLORIDE 108 mmol/L (98-107); SODIUM 140 mmol/L (136-145)
[2020-10-06 11:30] LABS: ALBUMIN 4.2 g/dl (3.4-5.0); ANION GAP 6 MMOL/L (8-16); BLOOD UREA NITROGEN 11.2 mg/dL (7-18); CO2 26 mmol/L (21-32); GLUCOSE,RANDOM 86 mg/dL (74-106); LIPASE 39 U/L (73-393)
[2020-10-06 11:32] LABS: SGOT/AST 30 U/L (15-37); SGPT/ALT 44 U/L (13-61)
[2020-10-06 11:35] LABS: BILIRUBIN,TOTAL 0.9 mg/dL (0.2-1); TOT PROT 7.6 g/dl (6.4-8.2)
[2020-10-06 11:36] LABS: ALK PHOS 82 U/L (45-117)
[2020-10-06 20:57] LABS: INR 1.1 (0.83-1.09); PROTHROMBIN TIME (PATIENT) 13.5 SEC (9.7-13.0)
[2020-10-06 21:00] LABS: ACTIVATED PTT 33.2 SECONDS (25.2-36.5)
[2020-10-07 00:14] VITALS: BMI 23.2
[2020-10-07 00:28] LABS: URINE BARBITURATES NEGATIVE (NEGATIVE); URINE BENZODIAZEPINES NEGATIVE (NEGATIVE)
[2020-10-07 00:30] LABS: COCAINE, UR NEGATIVE (NEGATIVE); METHADONE, UR NEGATIVE (NEGATIVE); OPIATES, URI NEGATIVE (NEGATIVE); PHENCYCLIDINE,URINE NEGATIVE (NEGATIVE)
[2020-10-07 00:42] LABS: URINE AMPHETAMINES NEGATIVE (NEGATIVE)
[2020-10-07] MEDS ORDERED: ACETAMINOPHEN 1000 MG/100 ML VIAL (NON FORMULARY) IVPB PRN (00:48)
[2020-10-07] MEDS ORDERED: PROCHLORPERAZINE INJECTION 10 MG/2 ML VIAL IVPB PRN (00:50)
[2020-10-07] MEDS ORDERED: SODIUM CHLORIDE 1,000 ML IV SCH (01:00)
[2020-10-07 09:25] LABS: INR 1.12 (0.83-1.09); PROTHROMBIN TIME (PATIENT) 13.5 SEC (9.7-13.0)
[2020-10-07 09:28] LABS: ACTIVATED PTT 34.2 SECONDS (25.2-36.5)
[2020-10-07 09:33] LABS: BASO % 0.8 % (0-2.0); EOS % 0.3 % (0-4.5); HEMATOCRIT 37.5 % (35.4-49); HEMOGLOBIN 12.6 GM/dL (11.7-16.9); MCHC 33.6 g/dl (32.0-35.9); MEAN CELL VOLUME 95.4 fl (80-96); MEAN PLT VOLUME 9.4 fl (7.5-11.1); MONO % 8.2 % (3.8-10.2); NEUT % 62.7 % (42.8-82.8); PLATELET COUNT 212 10^3/uL (134-434); RBC 3.93 M/mm3 (4.00-5.60); RDW 13.1 % (11.9-15.9); WHITE BLOOD COUNT 8.5 K/mm3 (4.0-10.0)
[2020-10-07 09:34] LABS: CALCIUM 8.2 mg/dL (8.5-10.1)
[2020-10-07 09:35] LABS: ALBUMIN 3.6 g/dl (3.4-5.0); BLOOD UREA NITROGEN 12.7 mg/dL (7-18)
[2020-10-07 09:38] LABS: PHOSPHOROUS 3.7 mg/dL (2.5-4.9)
[2020-10-07 09:39] LABS: BILIRUBIN,TOTAL 0.8 mg/dL (0.2-1); MAGNESIUM 2.1 mg/dL (1.8-2.4)
[2020-10-07] MEDS ORDERED: cloNIDine HCL 0.1 MG TABLET PO PRN ×2 (15:40→19:33)
[2020-10-07] MEDS ORDERED: NICOTINE 14 MG/24 HOURS TOPICAL PATCH TD SCH (15:45)
[2020-10-07] MEDS ORDERED: hydrOXYzine PAMOATE 25 MG CAPSULE (FP) PO PRN (15:46)
[2020-10-07] MEDS ORDERED: PROMETHAZINE HCL 25 MG/1 ML VIAL IVPUSH PRN (17:22)
[2020-10-07] MEDS ORDERED: LIDOCAINE HCL/PF 2% SDV 5ML VIAL ONE (17:26)
[2020-10-07] MEDS ORDERED: DEXAMETHASONE SOD PHOSPHATE 4 MG/1 ML VIAL ONE (17:26)
[2020-10-07] MEDS ORDERED: KETOROLAC TROMETHAMINE 30 MG/1 ML VIAL ONE ×2 (17:26→18:58)
[2020-10-07] MEDS ORDERED: PROPOFOL 20 ML ONE ×2 (17:27)
[2020-10-07] MEDS ORDERED: ROCURONIUM BROMIDE 50 MG/5 ML SYRINGE ONE (17:27)
[2020-10-07] MEDS ORDERED: MIDAZOLAM HCL 2 MG/2 ML SINGLE DOSE VIAL ONE ×3 (17:28→18:58)
[2020-10-07] MEDS ORDERED: LACTATED RINGERS SOLUTION 1,000 ML IV SCH ×2 (17:30→19:33)
[2020-10-07] MEDS ORDERED: ACETAMINOPHEN INJECTION 100 ML IVPB ONE (17:41)
[2020-10-07] MEDS ORDERED: ceFAZolin SODIUM 1 GM VIAL ONE (18:02)
[2020-10-07] MEDS ORDERED: BUPIVACAINE HCL/PF 0.5% (5MG/ML) 10 ML VIAL IJ ONE (18:25)
[2020-10-07] MEDS ORDERED: GLYCOPYRROLATE 0.2 MG/1 ML VIAL ONE (18:35)
[2020-10-07] MEDS ORDERED: NEOSTIGMINE METHYLSULFATE 0.5 MG/ML - 10 ML MDV ONE (18:35)
[2020-10-07] MEDS ORDERED: MIDAZOLAM HCL 2 MG/2 ML SINGLE DOSE VIAL IVPUSH ONE (19:27)
[2020-10-07] MEDS ORDERED: KETOROLAC TROMETHAMINE 30 MG/1 ML VIAL IM ONE (19:28)
[2020-10-07 20:04] VITALS: PULSE 61
[2020-10-07] MEDS: hydrOXYzine PAMOATE 25 MG CAPSULE (FP) PO PRN (22:58)
[2020-10-08] MEDS: ACETAMINOPHEN 1000 MG/100 ML VIAL (NON FORMULARY) IVPB SCH ×2 (00:02→06:05)
[2020-10-08] MEDS: KETOROLAC TROMETHAMINE 30 MG/1 ML VIAL IVPUSH SCH ×2 (01:05→10:19)
[2020-10-08] MEDS: hydrOXYzine PAMOATE 25 MG CAPSULE (FP) PO PRN (03:34)
[2020-10-08 08:13] VITALS: BP 128/83; TEMP 98.3
[2020-10-08] MEDS ORDERED: NICOTINE 14 MG/24 HOURS TOPICAL PATCH TD SCH (10:00)
[2020-10-08 10:54] LABS: BASO % 0.3 % (0-2.0); EOS % 0.2 % (0-4.5); LYMPH % 23.6 % (8-40); MCH 31.7 pg (25.7-33.7); MCHC 33.4 g/dl (32.0-35.9); MEAN CELL VOLUME 94.8 fl (80-96); MEAN PLT VOLUME 9.2 fl (7.5-11.1); MONO % 11.7 % (3.8-10.2); NEUT % 64.2 % (42.8-82.8); PLATELET COUNT 217 10^3/uL (134-434); RBC 4.11 M/mm3 (4.00-5.60); RDW 13.1 % (11.9-15.9); WHITE BLOOD COUNT 12.4 K/mm3 (4.0-10.0)
[2020-10-08 11:41] LABS: BLOOD UREA NITROGEN 10.1 mg/dL (7-18)
[2020-10-08 11:43] LABS: ALBUMIN 3.9 g/dl (3.4-5.0); CALCIUM 8.8 mg/dL (8.5-10.1); MAGNESIUM 2.3 mg/dL (1.8-2.4)
[2020-10-08 11:45] LABS: CREATININE 0.9 mg/dL (0.55-1.3)
[2020-10-08 11:47] LABS: BILIRUBIN,TOTAL 0.9 mg/dL (0.2-1); TOT PROT 6.7 g/dl (6.4-8.2)
== END 2020-10-08 12:51 | disposition home or self-care (01) ==
LOC: JER 23:36 → JERBED 23:55 → UNDOADMIN 23:55 → JERBED 10-07 00:38 → J6S 10-07 00:38 → JERBED 10-07 03:33 → J6S 10-07 13:50 → JASUSAT 10-07 19:00 → SUATTDRO 10-07 19:00 → JASUSAT 10-08 09:49 → J6S 10-08 09:51 → JASUSAT 10-08 12:51
PROVIDERS: ATTEND Nurse Practitioner Family
PROC: 0DTJ4ZZ Resection of Appendix, Percutaneous Endoscopic Approach (ICD-10-PCS; principal; 2020-10-07 15:30)
DX: K35.80 Unspecified acute appendicitis (principal)
CPT/HCPCS: 36415; 72192-TC; 80053; 80307; 83690; 83735; 84100; 84436; 84443; 84484; 85025; 85610; 85730; 86850; 86900; 86901; 88304-TC; 94760; 99285-25; C9803; J0131; U0003; U0005

== ENCOUNTER 2021-07-18 11:53 | Emergency (ER) | payer OTHER ==
[2021-07-18 12:12] VITALS: BMI 22.4
[2021-07-18] MEDS ORDERED: FAMOTIDINE 20 MG/50 ML IVPB 20 MG in PREMIX 50 IVPB ONE (12:19)
[2021-07-18] MEDS ORDERED: SODIUM CHLORIDE 1,000 ML IV ONE (12:19)
[2021-07-18] MEDS ORDERED: ONDANSETRON 4 MG/2 ML VIAL IVPB ONE (12:19)
[2021-07-18] MEDS ORDERED: ONDANSETRON 4 MG/2 ML VIAL ONE (12:22)
[2021-07-18] MEDS ORDERED: FAMOTIDINE 20 MG/50 ML IVPB 20 MG/50 ML MG IVPB ONE (12:22)
[2021-07-18 12:51] LABS: HEMATOCRIT 43.2 % (35.4-49); MCH 32.9 pg (25.7-33.7); MCHC 34.8 g/dl (32.0-35.9); MEAN CELL VOLUME 94.6 fl (80-96); MEAN PLT VOLUME 8.5 fl (7.5-11.1); PLATELET COUNT 236.3 10^3/uL (134-434); RBC 4.57 10^6/uL (4.00-5.60); RDW 14.1 % (11.9-15.9); WHITE BLOOD COUNT 8.6 10^3/uL (4.0-10.8)
[2021-07-18 13:00] LABS: CALCIUM 9.2 mg/dl (8.5-10)
[2021-07-18 13:03] LABS: ALBUMIN 4.3 g/dl (3.4-5.0); BILIRUBIN,TOTAL 1.3 mg/dl (0.2-1); TOT PROT 7.2 g/dl (6.4-8.2)
[2021-07-18 13:26] LABS: PLATELET ESTIMATE ADEQUATE
[2021-07-18 14:01] LABS: EPITHELIAL CELLS RARE /hpf
[2021-07-18] MEDS ORDERED: METOCLOPRAMIDE HCL INJECTION 10 MG/2 ML VIAL IVPUSH ONE (14:53)
[2021-07-18] MEDS ORDERED: ACETAMINOPHEN 1000 MG/100 ML BAG IVPB ONE (14:53)
[2021-07-18] MEDS ORDERED: HALOPERIDOL LACTATE 5 MG/ML IV ONE (14:55)
[2021-07-18] MEDS ORDERED: HALOPERIDOL LACTATE 5 MG/ML ONE (15:23)
[2021-07-18 15:58] VITALS: BP 142/91; PULSE 85; TEMP 98
== END 2021-07-18 16:16 | disposition home or self-care (01) ==
LOC: FER 11:53
PROC: 3E033GC Introduction of Other Therapeutic Substance into Peripheral Vein, Percutaneous Approach (ICD-10-PCS; principal; 2021-07-18)
DX: R11.10 Vomiting, unspecified (principal); F12.99 Cannabis use, unspecified with unspecified cannabis-induced disorder
CPT/HCPCS: 36415; 80053; 81003; 81015; 83690; 85025; 99284-25

== ENCOUNTER 2021-10-24 17:45 | Emergency (ER) | payer OTHER ==
[2021-10-24 18:07] VITALS: BP 133/78; PULSE 60; RESP 20; TEMP 99.2; BMI 24.3
[2021-10-24] MEDS ORDERED: PROCHLORPERAZINE INJECTION 10 MG/2 ML VIAL IM ONE (18:49)
[2021-10-24] MEDS ORDERED: PROMETHAZINE HCL 50 MG/1 ML AMP IM ONE (18:53)
[2021-10-24] MEDS ORDERED: ONDANSETRON *ODT* 4 MG TABLET SL ONE (19:10)
[2021-10-24] MEDS ORDERED: ONDANSETRON *ODT* 4 MG TABLET ONE (19:46)
== END 2021-10-24 20:32 | disposition left against medical advice (07) ==
LOC: FER 17:45
DX: R11.10 Vomiting, unspecified (principal)
CPT/HCPCS: 99281-25; Q0162

== ENCOUNTER 2021-10-26 10:48 | Emergency (ER) | payer OTHER ==
[2021-10-26] MEDS ORDERED: SODIUM CHLORIDE 0.9% 500 ML INFUS.BAG IV ONE (11:08)
[2021-10-26] MEDS ORDERED: HALOPERIDOL LACTATE 5 MG/ML IM ONE (11:08)
[2021-10-26 11:15] VITALS: BP 127/85; PULSE 53; RESP 16; TEMP 100; BMI 23.1
[2021-10-26] MEDS ORDERED: HALOPERIDOL LACTATE 5 MG/ML ONE (11:41)
[2021-10-26 11:54] LABS: HEMATOCRIT 45.7 % (35.4-49); HEMOGLOBIN 16.3 G/dL (11.7-16.9); MCH 33.8 pg (25.7-33.7); MCHC 35.6 g/dl (32.0-35.9); MEAN PLT VOLUME 8.7 fl (7.5-11.1); PLATELET COUNT 220.6 10^3/uL (134-434); RBC 4.81 10^6/uL (4.00-5.60); RDW 13.9 % (11.9-15.9); WHITE BLOOD COUNT 9.3 10^3/uL (4.0-10.8)
[2021-10-26 12:02] LABS: ALBUMIN 4.5 g/dl (3.4-5.0); CALCIUM 9.5 mg/dl (8.5-10); CREATININE 1.2 mg/dl (0.55-1.3); TOT PROT 7.6 g/dl (6.4-8.2)
[2021-10-26] MEDS ORDERED: KETOROLAC TROMETHAMINE 30 MG/1 ML VIAL IVPUSH ONE (13:19)
[2021-10-26] MEDS ORDERED: KETOROLAC TROMETHAMINE 15 MG/ML VIAL ONE (13:31)
== END 2021-10-26 13:39 | disposition home or self-care (01) ==
LOC: FER 10:48
PROC: 3E0233Z Introduction of Anti-inflammatory into Muscle, Percutaneous Approach (ICD-10-PCS; principal; 2021-10-26)
PROC: 3E0333Z Introduction of Anti-inflammatory into Peripheral Vein, Percutaneous Approach (ICD-10-PCS; 2021-10-26)
DX: R11.2 Nausea with vomiting, unspecified (principal); F11.23 Opioid dependence with withdrawal; F12.288 Cannabis dependence with other cannabis-induced disorder
CPT/HCPCS: 0241U-QW; 36415; 80053; 85027; 99284-25